=== PATIENT | male | born 1975 | race Asian ===

== ENCOUNTER 2022-03-26 12:31 | Outpatient (CLI) | payer BC, SELFPAY ==
--- NOTE | 2022-03-26 12:45 | XR_ITS ---
WS: [id number] Right shoulder, 2 views, 03/26/2022 Clinical Data: right shoulder pain Comparison: None. Findings: No fractures or dislocations are seen. The AC joint is normal. The adjacent right clavicle, right sca pula and ribs are normal. The soft tissues are unremarkable. XR/XR shoulder RT min 2V* [id number] Impression: Negative right shoulder.
== END 2022-03-26 12:32 | disposition home or self-care (01) ==
LOC: RAD 12:33
PROVIDERS: Visit Provider Emergency Medicine
DX: M25.511 Pain in right shoulder (principal)
CPT/HCPCS: 73030

== ENCOUNTER 2022-04-14 06:00 | Outpatient (RCR) | payer BC, SELFPAY | END 2022-04-23 23:59 | disposition home or self-care (01) | LOC: SPT 06:00 | PROVIDERS: Visit Provider Family Medicine | DX: M25.511 Pain in right shoulder (principal) | CPT/HCPCS: 97110; 97162 ==

== ENCOUNTER 2022-04-30 14:19 | Outpatient (RCR) | payer BC, SELFPAY | END 2022-05-23 23:59 | disposition home or self-care (01) | LOC: SPT 14:19 | PROVIDERS: Visit Provider Family Medicine | DX: M25.511 Pain in right shoulder (principal) | CPT/HCPCS: 97110 ==

== ENCOUNTER → 2022-11-10 08:54 | Outpatient (BNVA) | payer BC, SELFPAY | PROVIDERS: PCP Family Medicine; Visit Provider Family Medicine | DX: L50.9 Urticaria, unspecified (principal) | CPT/HCPCS: 82785; 86003 ==

== ENCOUNTER → 2022-11-17 07:33 | Outpatient (BNVA) | payer BC, SELFPAY | PROVIDERS: PCP Family Medicine; Visit Provider Family Medicine | DX: I48.91 Unspecified atrial fibrillation (principal); Z13.6 Encounter for screening for cardiovascular disorders | CPT/HCPCS: 80053; 83735; 84443; 85025 ==

== ENCOUNTER 2022-11-19 14:00 | Emergency (ER) | payer BC, SELFPAY ==
[2022-11-19] VITALS (33 sets, daily range): BP systolic 141–178; BP diastolic 93–105; PULSE 56–81; RESP 9–22; TEMP 37; O2SAT 95–99; BMI 28.8
--- NOTE | 2022-11-19 14:13 | ECG_ITS ---
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 Measurements Intervals [place] Rate: 54 P: 52 MI: 128 QRS: 72 QRSD: 109 T: 54 QT: 381 QTc: 363 Interpretive Statements SINUS BRADYCARDIA No previous ECG available for comparison Electronically Signed On 11-19-2022 23:54:03 CDT by Clifton Ewing M.D. [id number]
--- NOTE | 2022-11-19 14:15 | XR_ITS ---
WS: [id number] Exam: XR chest 1V portable [id number] Date/Time of Exam: 11/19/2022 2:24 PM Reason For Exam: cp No prior exams. The lungs are fully expanded and clear. Normal cardiomediastinal silhouette. Regional bony elements a re intact. A lobulated soft tissue density seen at the left cardiophrenic angle. No pleural effusions are noted. XR/XR chest 1V portable [id number] IMPRESSION: 1. No acute process identified. 2. Lobulated soft tissue density seen at the left cardiophrenic angle. This may represent epicardial fat however a pulmonary mass might have similar appearan ce. Contrast CT scan of the chest should be considered for further workup.
[2022-11-19 14:52] LABS: Basophils # 0.1 10^3/uL (0.0-0.1); Basophils % 0.7 %; Eosinophils # 0.2 10^3/uL (0.0-0.8); Hematocrit 46.4 % (42.0-52.0); Hemoglobin 15.5 g/dL (11.7-16.6); Lymphocytes # 2.3 10^3/uL (0.8-4.8); Lymphocytes % 33.6 %; Mean Corpuscular HGB Conc 33.4 g/dL (30.0-36.0); Mean Corpuscular Volume 86.9 fl (80-94); Mean Platelet Volume 10.7 fL (7.4-10.4); Monocytes # 0.6 10^3/uL (0.2-0.9); Monocytes % 7.9 %; Neutrophils # 3.78 10^3/uL (1.8-7.7); Neutrophils % 54.7 %; Nucleated Red Blood Cells % 0 %; Platelet Count 249 10^3/cmm (130-400); Red Blood Count 5.34 10^6/uL (4.1-5.3); Red Cell Distribution Width 12.9 % (12.1-15.1); White Blood Count 6.9 10^3/uL (4.0-10.0)
[2022-11-19 15:35] LABS: Anion Gap 16.2 (5-19); Blood Urea Nitrogen 16 mg/dL (6-20); Calcium 8.8 mg/dL (8.5-10.5); Carbon Dioxide 27 mmol/L (22-29); Chloride 101 mmol/L (98-107); Glomerular Filtration Rate 120.9 mL/min (90-130); Glucose 97 mg/dL (65-115); Osmolality Calculated 291 mOsm/kg (285-295); Potassium 4.2 mmol/L (3.5-5.1); Sodium 140 mmol/L (136-145)
[2022-11-19 15:38] LABS: Troponin(5th) Baseline 39 ng/L (0-15)
--- NOTE | 2022-11-19 16:09 | ED_ITS ---
HPI - Chest Pain General: Chief Complaint: Chest Pain Stated Complaint: chest discomfort Time Seen by Provider: 11/19/22 16:03 Source: patient Mode of arrival: ambulatory History of Present Illness: 47-year-old male presents emergency room he has had intermittent chest pain for nearly a week. He was seen recently found to be in A-fib started on metoprolol and Eliquis he still having palpitations at times and intermittent chest discomfort. He says last several days he has had it continuously. Nothing seems to exacerbate or relieve it he has mild discomfort on arrival here today. Does not notice any shortness of breath diaphoresis nausea or vomiting. MD complaint: chest discomfort Onset (ago): day(s) Timing of current episode: episodic Prior episodes: Yes Onset: during rest and during exertion Pain location: left chest Severity: mild Quality: heaviness Relieving factors: nothing Exacerbating factors: nothing Associated symptoms: Deny abdominal pain, diaphoresis, dyspnea, fever(s), leg edema, nausea, palpitations, sense of impending doom, syncope or vomiting Review of Systems Const: Denies: fever(s), chills, fatigue, malaise or diaphoresis ENMT: Denies: throat pain, ear or mastoid pain, nasal discharge or nasal congestion Card: Reports: chest pain and irregular heart rhythm; Denies: palpitations, edema, swelling of feet/ankles or syncope Resp: Denies: dyspnea, productive cough, non-productive cough or wheezing GI: Denies: abdominal pain, nausea or vomiting : Denies: flank pain, dysuria, urinary frequency or urinary urgency Skin/Breast: Denies: rash or pruritus [facility] ED PFSH: Medical History (Updated 11/20/22 @ 07:22 by Isaías Tobias DO) Atrial fibrillation with RVR Benign essential HTN Shoulder pain, right Surgical History No pertinent past surgical history Social History Smoking and tobacco status: never smoked Alcohol intake: current Alcohol intake frequency: holidays/special occasions only Lives independently: Yes Household members: spouse and children Physical Exam Const: GENERAL APPEARANCE: cooperative and comfortable ORIENTATION/CONSCIOUSNESS: Yes awake, Yes oriented to person, Yes oriented to place and Yes oriented to time HENMT: COMMON NORMALS: normocephalic, atraumatic and hearing grossly normal bilaterally HEAD & SCALP: normocephalic and atraumatic Resp: COMMON NORMALS: normal respiratory effort, No retractions, No use of accessory muscles and clear to auscultation bilaterally AUSCULTATION: clear to auscultation bilaterally Cardio: COMMON NORMALS: regular rate, regular rhythm and No murmurs present (Cardio) RATE: regular rate RHYTHM: regular rhythm GI: COMMON NORMALS: Soft to palpation and No hepatosplenomegaly present AUSCULTATION: Yes normoactive bowel sounds PALPATION: Yes Soft to palpation, No Tenderness to palpation present (GI), No Guarding due to palpation present (GI) and Yes No hepatosplenomegaly present Extremity: COMMON NORMALS: normal to inspection, capillary refill normal, no clubbing, cyanosis or edema, no calf tenderness and no pedal edema Neuro: SENSORIUM/ORIENTATION: Yes oriented to person, Yes oriented to place and Yes oriented to time Skin: COMMON NORMALS: no rashes or lesions noted GENERAL SKIN EXAM: no rashes or lesions noted Course Vital Signs: Vital signs: Vital Signs Temperature 98.6 F 11/19/22 14:08 Pulse Rate 65 11/19/22 19:03 Respiratory Rate 16 11/19/22 19:03 Blood Pressure 151/101 11/19/22 19:03 Pulse Oximetry 98 11/19/22 19:03 Oxygen Delivery Me thod 11/19/22 14:08 MDM - Chest Pain Medical Decision Making EKG and troponins unremarkable. Labs and imaging EKG reviewed with the patient. He is in normal sinus rhythm at this time. His Chads VASC 2 score calculates to be 1 (htn). I think he should undergo cardiac stress testing. Additionally I think he needs to be evaluated for continuing anticoagulation. Given he has A-fib he should undergo a nuclear stress test he will have to be off of his metoprolol for the stress testing it is likely that he would have recurrent A- fib which would confound the stress testing. Did ask him to start taking a baby aspirin daily for now. We will set him up for follow-up with cardiology. Medical Records I reviewed the patient's medical records. Lab Data I reviewed the patient's lab results. 11/19/22 14:35 11/19/22 14:35 Radiology Impressions Chest X-Ray 11/19/22 14:15 IMPRESSION: 1. No acute process identified. 2. Lobulated soft tissue density seen at the left cardiophrenic angle. This may represent epicardial fat however a pulmonary mass might have similar appearance. Contrast CT scan of the chest should be considered for further workup. Laboratory Results WBC 6.9 10^3/uL (4.0-10.0) 11/19/22 14:35 RBC 5.34 10^6/uL (4.1-5.3) H 11/19/22 14:35 Hgb 15.5 g/dL (11.7-16.6) 11/19/22 14:35 Hct 46.4 % (42.0-52.0) 11/19/22 14:35 MCV 86.9 fl (80-94) 11/19/22 14:35 MCH 29.0 pg (28.0-34.0) 11/19/22 14:35 MCHC 33.4 g/dL (30.0-36.0) 11/19/22 14:35 RDW 12.9 % (12.1-15.1) 11/19/22 14:35 Plt Count 249 10^3/cmm (130-400) 11/19/22 14:35 MPV 10.7 fL (7.4-10.4) H 11/19/22 14:35 Neut % (Auto) 54.7 % 11/19/22 14:35 Lymph % (Auto) 33.6 % 11/19/22 14:35 [place] % (Auto) 7.9 % 11/19/22 14:35 Eos % (Auto) 3.0 % 11/19/22 14:35 Baso % (Auto) 0.7 % 11/19/22 14:35 Neut # (Auto) 3.78 10^3/uL (1.8-7.7) 11/19/22 14:35 Lymph # (Auto) 2.3 10^3/uL (0.8-4.8) 11/19/22 14:35 [place] # (Auto) 0.6 10^3/uL (0.2-0.9) 11/19/22 14:35 Eos # (Auto) 0.2 10^3/uL (0.0-0.8) 11/19/22 14:35 Baso # (Auto) 0.1 10^3/uL (0.0-0.1) 11/19/22 14:35 Nucleated RBC % (auto) 0 % 11/19/22 14:35 Nucleated RBCs # 0.0 /100WBC 11/19/22 14:35 D-Dimer 0.35 ug/mIFEU (0-0.59) 11/19/22 14:35 Sodium 140 mmol/L (136-145) 11/19/22 14:35 Potassium 4.2 mmol/L (3.5-5.1) 11/19/22 14:35 Chloride 101 mmol/L (98-107) 11/19/22 14:35 Carbon Dioxide 27 mmol/L (22-29) 11/19/22 14:35 Anion Gap 16.2 (5-19) 11/19/22 14:35 BUN 16 mg/dL (6-20) 11/19/22 14:35 Creatinine 0.7 mg/dL (0.7-1.2) 11/19/22 14:35 GFR Calculation 120.9 mL/min (90-130) 11/19/22 14:35 Glucose 97 mg/dL (65-115) 11/19/22 14:35 Calculated Osmolality 291 mOsm/kg (285-295) 11/19/22 14:35 Calcium 8.8 mg/dL (8.5-10.5) 11/19/22 14:35 Troponin T Baseline 39 ng/L (0-15) H 11/19/22 14:35 Troponin T 120 Minute 39.08 ng/L (0-15) H 11/19/22 16:29 Delta Troponin T 0.08 ABS# (0-10) 11/19/22 16:29 TSH 1.10 uIU/mL (0.27-4.20) 11/19/22 14:35 Discharge Plan Discharge Patient Disposition: Home Clinical Impression: Atypical chest pain, Intermittent atrial fibrillation Condition: Stable Prescriptions: New aspirin 81 mg tablet,delayed release (DR/EC) 81 mg PO DAILY Qty: 30 0RF amlodipine 5 mg tablet 5 mg PO DAILY Qty: 30 0RF No Action metoprolol tartrate 25 mg tablet 25 mg PO BID Qty: 60 0RF Eliquis DVT-PE Treat 30D Start 5 mg (74 tabs) tablets,dose pack See Rx Instructions PO PER PKG DIR Qty: 74 0RF Rx Instructions: PO PER PKG DIR multivitamin Tablet 1 tab PO DAILY Discharge Orders: Discharge ED (Routine); Ordered 11/19/22 Ordered By: Isaías Tobias Referrals: Vale López DO [Primary Care Provider] - Discharge Diet: Usual diet Discharge Activity: Limit activity as instructed Patient Instructions: Opioid Safety, Pain Management Activity Restrictions/Additional Instructions: You are seen today for chest pain. Your blood pressure was elevated. Recommend continue Eliquis add aspirin 81 mg daily additionally add amlodipine 5 mg daily. desktop manager will make arranges for you to outpatient Lexiscan sestamibi stress test. Coding Level of Care Code ED Director Nursing Service for Ifeanyi Lima
[2022-11-19 16:11] LABS: D Dimer 0.35 ug/mIFEU (0-0.59)
--- NOTE | 2022-11-19 16:15 | ECG_ITS ---
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 Measurements Intervals [place] Rate: 66 P: 38 VT: 137 QRS: 48 QRSD: 96 T: 20 QT: 364 QTc: 381 Interpretive Statements SINUS RHYTHM Compared to ECG 11/19/2022 14:16:47 Sinus bradycardia no longer present Electronically Signed On 11-20-2022 18:48:36 CDT by Claudio Mobley M.D. [id number]
[2022-11-19 17:22] LABS: Troponin 5 2HR 39.08 ng/L (0-15)
[2022-11-19 17:23] LABS: Troponin 5 2HR Delta 0.08 ABS# (0-10)
--- NOTE | 2022-11-20 10:30 | DCPLANNER ---
Addendum entered by Sangeetha Romero 01/08/23 10:04: Patient had a follow up appointment scheduled with [facility] care - patient attended appointment Patient had an outpatient stress test - patient did attend appointment. Addendum entered by Sangeetha Romero 11/24/22 08:07: Patient has an outpatient stress test scheduled for Monday, December 19, 2022 at 7:30 Addendum entered by Sangeetha Romero 11/21/22 07:53: Patient has a follow up appointment scheduled for Saturday, January 07, 2023 at 2:[address] Mobley at [facility]. Original Note: manager recruiting had message to schedule a follow up appointment for patient with cardiology. manager recruiting sent patients information to the front office staff at [facility]. Patients information will be reviewed, clinic will call patient with appointment information. manager recruiting also had message to schedule an outpatient stress test for patient. manager recruiting faxed signed order to centralized scheduling, who will call patient with appointment information.
== END 2022-11-19 19:04 | disposition home or self-care (01) ==
PROVIDERS: Emergency Medicine; Emergency Provider Family Medicine; PCP Family Medicine
DX: R07.89 Other chest pain (principal); I48.91 Unspecified atrial fibrillation; I10 Essential (primary) hypertension
CPT/HCPCS: 36415; 71045; 80048; 84443; 84484; 85025; 85378; 93005; 99285

== ENCOUNTER 2022-11-25 08:13 | Observation (INO) | payer BC, SELFPAY ==
[2022-11-25] VITALS (94 sets, daily range): BP systolic 94–133; BP diastolic 60–99; PULSE 72–182; RESP 10–39; TEMP 36.4–36.9; O2SAT 91–100; BMI 29.2
--- NOTE | 2022-11-25 08:22 | ECG_ITS ---
[facility] Test Date: 2022-11-25 Pat Name: Dillan Elizabeth Department: Room: Gender: Male Finish Carpenter: : 1975 Requested By: Isaías Steele Order Number: [id number] La MD: Claudio Mobley M.D. Measurements Intervals [place] Rate: 156 P: 0 MT: 0 QRS: 117 QRSD: 91 T: -4 QT: 250 QTc: 403 Interpretive Statements ATRIAL FIBRILLATION WITH RAPID VENTRICULAR RESPONSE POSSIBLE RIGHT VENTRICULAR HYPERTROPHY [SOME/ALL OF: PROMINENT R IN V1, LATE TRANSITION, RAD, DEBBIE, SSS] ABNORMAL QRS-T ANGLE [QRS-T AXIS DIFFERENCE > 60] Compared to ECG 11/19/2022 18:03:57 Atrial abnormality now present Sinus rhythm no longer present Electronically Signed On 11-25-2022 11:53:17 CDT by Claudio Mobley M.D. [id number]
--- NOTE | 2022-11-25 08:36 | XRR_ITS ---
PROCEDURE INFORMATION: Exam: XR Chest Exam date and time: 11/25/2022 8:56 AM Age: 47 years old Clinical indication: Cough and dyspnea; Patient HX: Irregular hr, dizziness; Additional info: Dyspnea/cough TECHNIQUE: Imaging protocol: Radiologic exam of the chest. Views: 1 view. COMPARISON: CR XR chest 1V portable [id number] 11/19/2022 2:27 PM FINDINGS: Lungs: Unremarkable. No consolidation. Pleural spaces: Unremarkable. No pleural effusion. No pneumothorax. Heart/Mediastinum: Unremarkable. No cardiomegaly. Bones/joints: Unremarkable for age. XR/XR chest 1V portable [id number] IMPRESSION: Negative chest
--- NOTE | 2022-11-25 08:38 | W.ED.ARRPALP ---
HPI - Arrhythmia/Palpitations General: Chief Complaint: Arrhythmia/Palpitations Stated Complaint: irregular hr, dizziness Time Seen by Provider: 11/25/22 08:20 Source: patient Mode of arrival: ambulatory History of Present Illness: 7-year-old male presents emergency room is a known history of A-fib with RVR. He is currently on metoprolol and is on Eliquis. He had wheezing and recently his blood pressure is elevated we added amlodipine because he was bradycardic at times but his rate was well controlled and he was in a sinus rhythm. This morning he had not taken any of his medications prior to arrival he just did not feel well he did been feeling some palpitations and irregular heartbeat. He did not have any chest pain or shortness of breath. MD complaint: rapid heart beat, heart racing and palpitations Duration: constant Severity: mild Context: occurred during rest Arrhythmia history: atrial fibrillation Associated symptoms: Deny anxiety, cough, diaphoresis, muscle cramps, nausea, paresthesias, pre-syncope, sense of impending doom, short of breath, syncope or vomiting Review of Systems Const: Denies: fever(s), chills, fatigue, malaise or diaphoresis ENMT: Denies: throat pain, ear or mastoid pain, nasal discharge or nasal congestion Card: Reports: palpitations, irregular heart rhythm, lightheadedness and dyspnea on exertion; Denies: chest pain, edema, swelling of feet/ankles, syncope or pre-syncope Resp: Denies: dyspnea, productive cough or non-productive cough GI: Denies: abdominal pain, nausea or vomiting : Denies: flank pain, dysuria, urinary frequency or urinary urgency Musc: Denies: muscle cramps Skin/Breast: Denies: rash or pruritus Psych: Denies: anxiety PFSH ED PFSH: Medical History Atrial fibrillation with RVR Benign essential HTN Idiopathic urticaria Shoulder pain, right Surgical History No pertinent past surgical history Family History Other Diabetes Hypertension Social History Smoking and tobacco status: never smoked Alcohol intake: current Alcohol intake frequency: holidays/special occasions only Lives independently: Yes Household members: spouse and children Physical Exam Const: COMMON NORMALS: no acute distress GENERAL APPEARANCE: cooperative and comfortable ORIENTATION/CONSCIOUSNESS: Yes awake, Yes oriented to person, Yes oriented to place and Yes oriented to time HENMT: COMMON NORMALS: normocephalic, atraumatic and hearing grossly normal bilaterally HEAD & SCALP: normocephalic and atraumatic Resp: COMMON NORMALS: normal respiratory effort, No retractions, No use of accessory muscles and clear to auscultation bilaterally AUSCULTATION: clear to auscultation bilaterally Cardio: COMMON NORMALS: No murmurs present (Cardio) RATE: tachycardic RHYTHM: abnormal rhythm irregularly irregular GI: COMMON NORMALS: Soft to palpation and No hepatosplenomegaly present AUSCULTATION: Yes normoactive bowel sounds PALPATION: Yes Soft to palpation, No Tenderness to palpation present (GI), No Guarding due to palpation present (GI) and Yes No hepatosplenomegaly present Extremity: COMMON NORMALS: normal to inspection, capillary refill normal, no clubbing, cyanosis or edema, no calf tenderness and no pedal edema Neuro: SENSORIUM/ORIENTATION: Yes oriented to person, Yes oriented to place and Yes oriented to time Skin: COMMON NORMALS: no rashes or lesions noted GENERAL SKIN EXAM: no rashes or lesions noted Course Vital Signs: Vital signs: Vital Signs Temperature 98.3 F 11/26/22 04:00 Pulse Rate 92 11/26/22 07:41 Respiratory Rate 23 H 11/26/22 07:41 Blood Pressure 124/67 11/26/22 07:41 Pulse Oximetry 96 11/26/22 07:41 Oxygen Delivery Me thod 11/26/22 07:41 MDM - Arrhythmia/Palpitations Medical Decision Making Patient had not taken his metoprolol this morning and was started on Cardizem rate improved but did have to titrate his Cardizem up. Discussed with hospitalist orders written. Need to be reevaluated to see if they need to continue his Eliquis or not. He also needs further work-up for his A-fib. Medical Records I reviewed the patient's medical records. Lab Data I reviewed the patient's lab results. 11/26/22 02:59 11/26/22 02:59 Radiology Impressions Chest X-Ray 11/25/22 08:36 IMPRESSION: Negative chest Laboratory Results WBC 7.5 10^3/uL (4.0-10.0) 11/25/22 08:44 RBC 5.68 10^6/uL (4.1-5.3) H 11/25/22 08:44 Hgb 16.8 g/dL (11.7-16.6) H 11/25/22 08:44 Hct 49.0 % (42.0-52.0) 11/25/22 08:44 MCV 86.3 fl (80-94) 11/25/22 08:44 MCH 29.6 pg (28.0-34.0) 11/25/22 08:44 MCHC 34.3 g/dL (30.0-36.0) 11/25/22 08:44 RDW 13.1 % (12.1-15.1) 11/25/22 08:44 Plt Count 255 10^3/cmm (130-400) 11/25/22 08:44 MPV 10.3 fL (7.4-10.4) 11/25/22 08:44 Neut % (Auto) 52.5 % 11/25/22 08:44 Lymph % (Auto) 36.7 % 11/25/22 08:44 [place] % (Auto) 8.0 % 11/25/22 08:44 Eos % (Auto) 2.0 % 11/25/22 08:44 Baso % (Auto) 0.7 % 11/25/22 08:44 Neut # (Auto) 3.95 10^3/uL (1.8-7.7) 11/25/22 08:44 Lymph # (Auto) 2.8 10^3/uL (0.8-4.8) 11/25/22 08:44 [place] # (Auto) 0.6 10^3/uL (0.2-0.9) 11/25/22 08:44 Eos # (Auto) 0.2 10^3/uL (0.0-0.8) 11/25/22 08:44 Baso # (Auto) 0.1 10^3/uL (0.0-0.1) 11/25/22 08:44 Nucleated RBC % (auto) 0 % 11/25/22 08:44 Nucleated RBCs # 0.0 /100WBC 11/25/22 08:44 Sodium 141 mmol/L (136-145) 11/25/22 08:44 Potassium 4.2 mmol/L (3.5-5.1) 11/25/22 08:44 Chloride 106 mmol/L (98-107) 11/25/22 08:44 Carbon Dioxide 24 mmol/L (22-29) 11/25/22 08:44 Anion Gap 15.2 (5-19) 11/25/22 08:44 BUN 15 mg/dL (6-20) 11/25/22 08:44 Creatinine 0.7 mg/dL (0.7-1.2) 11/25/22 08:44 GFR Calculation 120.9 mL/min (90-130) 11/25/22 08:44 Glucose 91 mg/dL (65-115) 11/25/22 08:44 Calculated Osmolality 292 mOsm/kg (285-295) 11/25/22 08:44 Calcium 8.6 mg/dL (8.5-10.5) 11/25/22 08:44 Magnesium 2.3 mg/dL (1.7-2.3) 11/25/22 08:44 Troponin T Baseline 47 ng/L (0-15) H 11/25/22 08:44 Troponin T 120 Minute 45.81 ng/L (0-15) H 11/25/22 11:00 Delta Troponin T -1.19 ABS# (0-10) L 11/25/22 11:00 Critical Care Time Critical Care Time: Critical Care Time: Yes Total Critical Care Time: 40 Attestation: The high probability of a clinically significant, sudden or life threatening deterioration of the patient's cardiovascular system(s) required my full and direct attention, intervention and personal management. The critical care time is as shown. This time is in addition to time spent performing any reported procedures but includes the following: [x] Data and vital sign review and interpretation [x] Patient assessment, examination and intervention [x] Documentation [x] Medication orders and management Discharge Plan Discharge Patient Disposition: Admitted As Inpatient Admit Provider: Jake Cornell Clinical Impression: Atrial fibrillation with RVR, Intermittent atrial fibrillation Condition: Stable Coding Level of Care Code ED Credit Control Manager for Richardg Clarence
[2022-11-25] MEDS: dilTIAZem 5 mg/mL SDV 5 mL 20 MG IVP (08:50)
[2022-11-25 08:51] LABS: Basophils # 0.1 10^3/uL (0.0-0.1); Basophils % 0.7 %; Eosinophils # 0.2 10^3/uL (0.0-0.8); Hemoglobin 16.8 g/dL (11.7-16.6); Lymphocytes # 2.8 10^3/uL (0.8-4.8); Lymphocytes % 36.7 %; Mean Corpuscular HGB Conc 34.3 g/dL (30.0-36.0); Mean Corpuscular Hemoglobin 29.6 pg (28.0-34.0); Mean Corpuscular Volume 86.3 fl (80-94); Mean Platelet Volume 10.3 fL (7.4-10.4); Monocytes # 0.6 10^3/uL (0.2-0.9); Neutrophils # 3.95 10^3/uL (1.8-7.7); Neutrophils % 52.5 %; Nucleated Red Blood Cells % 0 %; Platelet Count 255 10^3/cmm (130-400); Red Blood Count 5.68 10^6/uL (4.1-5.3); Red Cell Distribution Width 13.1 % (12.1-15.1); White Blood Count 7.5 10^3/uL (4.0-10.0)
--- NOTE | 2022-11-25 08:52 | PC.PHAR ---
pt states he takes care of his own medications-pt states he started taking eliquis pack the evening he got filled on 11/17/22-pt states on 11/24/22 he took 10mg in the am and 5mg qpm-pt states he will start the 5mg bid today
[2022-11-25] MEDS: dilTIAZem 100 MG in sodium chloride 0.9% (add-van) 100 ML IV (08:54)
[2022-11-25 09:09] LABS: Anion Gap 15.2 (5-19); Blood Urea Nitrogen 15 mg/dL (6-20); Calcium 8.6 mg/dL (8.5-10.5); Carbon Dioxide 24 mmol/L (22-29); Chloride 106 mmol/L (98-107); Glomerular Filtration Rate 120.9 mL/min (90-130); Glucose 91 mg/dL (65-115); Osmolality Calculated 292 mOsm/kg (285-295); Potassium 4.2 mmol/L (3.5-5.1); Sodium 141 mmol/L (136-145)
[2022-11-25 09:11] LABS: Troponin(5th) Baseline 47 ng/L (0-15)
[2022-11-25] MEDS: metoprolol tartrate 25 mg Tablet PO ×2 (10:28→18:43)
--- NOTE | 2022-11-25 10:46 | ECG_ITS ---
[facility] Test Date: 2022-11-25 Pat Name: Dillan Elizabeth Department: Room: Gender: Male Mft: : 1975 Requested By: Isaías Steele Order Number: [id number] La MD: Claudio Mobley M.D. Measurements Intervals [place] Rate: 135 P: 0 WI: 0 QRS: 118 QRSD: 90 T: 18 QT: 264 QTc: 397 Interpretive Statements ATRIAL FIBRILLATION WITH RAPID VENTRICULAR RESPONSE WITH ABERRANT CONDUCTION OR VENTRICULAR PREMATURE COMPLEXES POSSIBLE RIGHT VENTRICULAR HYPERTROPHY [SOME/ALL OF: PROMINENT R IN V1, LATE TRANSITION, RAD, DEBBIE, SSS] NONSPECIFIC T-WAVE ABNORMALITY Compared to ECG 11/25/2022 08:31:37 Ventricular premature complex(es) now present Aberrant conduction of supraventricular beat(s) now present T-wave abnormality now present Electronically Signed On 11-25-2022 11:54:07 CDT by Claudio Mobley M.D. [id number]
--- NOTE | 2022-11-25 10:50 | PM.HP ---
Providers/Chief Complaint Admitting Physician: Jake Cornell MD Primary Care Provider: Vale López DO Chief Complaint: irregular hr, dizziness History of Present Illness Dillna Elizabeth is a 47 year old male who presents to the emergency department feeling dizzy, having palpitations. Heart rate was noted to be high, and atrial fibrillation/flutter. He does not report any chest discomfort currently. Some shortness of breath with exertion. He reports he was first diagnosed with atrial fibrillation on November 14, and beta-florence, and anticoagulation were initiated. He was also placed on Norvasc secondary to hypertension. His only other medical condition is that he has had some intermittent unexplained hives. He was started on Stephanie about a month ago which is helping substantially. He does not believe this is Stephanie-D, just plain fexofenadine and he gets this [id number]. No prior history of cardiac issues. Review of Systems General: Reports: 10 or more systems reviewed and unremarkable except in HPI and below Const: Denies: fever(s) or chills Card: Reports: palpitations and dyspnea on exertion; Denies: chest pain Resp: Denies: productive cough or non-productive cough GI: Denies: abdominal pain, hematochezia or melena Medications/Allergies Home Medications Medication Instructions Recorded Confirmed Last Taken Type metoprolol tartrate 25 mg tablet 25 mg PO BID #60 tabs 11/17/22 11/25/22 11/24/22 Rx multivitamin 1 tab PO QAM 11/19/22 11/25/22 11/24/22 History amlodipine 5 mg tablet 5 mg PO QAM 11/25/22 11/25/22 11/24/22 History apixaban 5 mg tablet (Eliquis) 5 mg PO BID 11/25/22 11/25/22 11/24/22 History see pharmacy comment aspirin 81 mg tablet,delayed 81 mg PO BEDTIME 11/25/22 11/25/22 11/24/22 History release fexofenadine 180 mg tablet 180 mg PO QAM 11/25/22 11/25/22 11/24/22 History Allergies Allergy/AdvReac Type Severity Reaction Status Date / Time No Known Allergies Allergy Verified 11/25/22 08:54 PFSH Acute PFSH: Medical History Atrial fibrillation with RVR Benign essential HTN Idiopathic urticaria Shoulder pain, right Surgical History No pertinent past surgical history Family History Other Diabetes Hypertension Social History Smoking and tobacco status: never smoked Alcohol intake: current Alcohol intake frequency: holidays/special occasions only Lives independently: Yes Household members: spouse and children Vitals/I&O/Wt Last Vital Signs Temp 98.2 F 11/25/22 08:22 Pulse 106 H 11/25/22 09:10 Resp 16 11/25/22 08:22 BP 106/79 11/25/22 09:10 Pulse Ox 96 11/25/22 09:10 O2 Del Method 11/25/22 09:10 11/24/22 11/25/22 11/25/22 22:59 06:59 14:59 Intake Total 5.75 / 5.75 Balance 5.75 / 5.75 Weight last 48 hrs Weight 87.09 kg Physical Exam Narrative: General exam is a white male, no distress, conversant and pleasant HEENT: Atraumatic and normocephalic. Pupils equally round. Oropharynx clear. Neck is supple no lymphadenopathy thyromegaly Cardiovascular irregular, irregular with accelerated rate. No murmur. Lungs clear no wheezing or crackles Abdomen is soft with positive bowel sounds. No obvious organomegaly exams deferred Extremities no cyanosis clubbing edema, cap refill brisk Skin no rash Neuro no obvious focal deficits. Data 11/25/22 08:44 11/25/22 08:44 Other Labs: Previous recent LFTs were reviewed, from November 17 which were normal with the exception of slight elevation of ALT at 49 Troponin 47, repeat pending TSH checked on 2 separate occasions recently and negative. EKG demonstrates initially a rate of 160, right axis deviation, atrial fibrillation/flutter. Nonspecific ST-T wave changes. Chest x-ray done today which I reviewed is normal. A&P Assessment and plan (1) Atrial fibrillation with RVR: Patient presents to the emergency department atrial fibrillation with rapid ventricular rate. He was first diagnosed with atrial fibrillation on November 14. Since then he has been put on Norvasc for hypertension, Eliquis for anticoagulation, and metoprolol. I believe he was on a higher dose of metoprolol at 1 point but found to be bradycardic when he converted to sinus rhythm in the mid 50s in clinic and the dose was lowered. Check echocardiogram [id number] score is 1. Continue Eliquis for now until echocardiogram is back. Then discussed with patient risks and benefits Could benefit from outpatient cardiology follow-up. If difficulty controlling rhythm inpatient, could consider involving them currently. Observation, to telemetry TSH was already checked and normal Check magnesium level No need for aspirin currently. Atherosclerotic disease thought not likely. Continue to evaluate troponin trend. Plan History of hypertension. Was placed on Norvasc. Will hold as blood pressure is somewhat low currently and likely further adjustments of medication for rate will be needed. History of idiopathic urticaria. Continue Stephanie Attestations Medical Necessity Statement*: Will need less than 2 midnight stay for evaluation and treatment of atrial fibrillation with rapid ventricular rate. Diagnoses Atrial fibrillation with RVR I48.91 Time Spent (min) 47
--- NOTE | 2022-11-25 10:52 | USCV_ITS ---
Glenn Dillan Age: 47 Gender: M : 1975 Exam Date: 11/25/2022 13:51 Ordering Phys: Jake Cornell MD Technologist: Peterson Wilder [place] [facility] [place]: aflutter BP: / HR: Rhythm: Sinus Technical Quality: MEASUREMENTS (Male / Female) Normal Values FINDINGS Left Ventricle Normal left ventricular size and systolic function, EF 55%.mild left ventricular hypertrophy. Right Ventricle Possibly of normal size and ejection fraction Right Atrium Possibly of normal size Left Atrium Mildly increased left atrial size. Mitral Valve No gross abnormalities noted no gross abnormalities noted Aortic Valve No gross abnormalities noted Tricuspid Valve No gross abnormalities noted Pulmonic Valve Pulmonic valve not well visualized. Pericardium No pericardial effusion. Aorta Normal aortic annulus size. IVC Inferior vena cava not visualized. CONCLUSIONS Normal left ventricular size and systolic function, EF 55%. Segmental wall motion is difficult because of the arrhythmia. However no gross wall motion normalities were noted Mild left ventricular hypertrophy. Mildly increased left atrial size. There is no pericardial effusion. There are no intracardiac masses. No significant stenotic or regurgitant lesions. No similar previous studies are available for comparison Dr Clifton Ewing MD [facility] (Electronically Signed) Final Date: 25 November 2022 22:54 S
[2022-11-25 11:33] LABS: Troponin 5 2HR 45.81 ng/L (0-15)
[2022-11-25 11:37] LABS: Troponin 5 2HR Delta -1.19 ABS# (0-10)
[2022-11-25 12:07] LABS: Magnesium 2.3 mg/dL (1.7-2.3)
[2022-11-25] MEDS: dilTIAZem 30 mg Tablet PO ×2 (14:07→18:43)
--- NOTE | 2022-11-25 14:53 | ECG_ITS ---
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 Measurements Intervals [place] Rate: 94 P: 0 DE: 0 QRS: 66 QRSD: 97 T: 35 QT: 326 QTc: 409 Interpretive Statements ATRIAL FIBRILLATION WITH ABERRANT CONDUCTION OR VENTRICULAR PREMATURE COMPLEXES Compared to ECG 11/25/2022 10:46:20 Atrial abnormality no longer present T-wave abnormality no longer present Electronically Signed On 11-25-2022 17:29:37 CDT by Claudio Mobley M.D. [id number]
[2022-11-25 15:24] LABS: Troponin 5 6HR 44.81 ng/L (0-15)
[2022-11-25 15:34] LABS: Troponin 5 6HR Delta -2.19 ng/L (0-12)
[2022-11-25] MEDS: sodium chloride 0.9% 1,000 ML 75 ML IV (16:14)
[2022-11-25] MEDS: apixaban 5 mg Tablet PO (18:43)
[2022-11-26] VITALS (62 sets, daily range): BP systolic 99–155; BP diastolic 60–110; PULSE 67–173; RESP 14–26; TEMP 36.4–36.8; O2SAT 89–98
[2022-11-26] MEDS: dilTIAZem 30 mg Tablet PO ×2 (00:58→07:52)
[2022-11-26] MEDS: sodium chloride 0.9% 1,000 ML 75 ML IV (03:53)
[2022-11-26] MEDS: dilTIAZem 100 MG in sodium chloride 0.9% (add-van) 100 ML 7.5 MG IV (03:55)
[2022-11-26 04:20] LABS: Basophils # 0.1 10^3/uL (0.0-0.1); Basophils % 0.7 %; Eosinophils # 0.2 10^3/uL (0.0-0.8); Eosinophils % 2.8 %; Hematocrit 44.9 % (42.0-52.0); Hemoglobin 15.1 g/dL (11.7-16.6); Lymphocytes # 3.2 10^3/uL (0.8-4.8); Lymphocytes % 41.9 %; Mean Corpuscular HGB Conc 33.6 g/dL (30.0-36.0); Mean Corpuscular Volume 86.3 fl (80-94); Mean Platelet Volume 11.1 fL (7.4-10.4); Monocytes # 0.6 10^3/uL (0.2-0.9); Monocytes % 7.3 %; Neutrophils # 3.57 10^3/uL (1.8-7.7); Neutrophils % 47.2 %; Nucleated Red Blood Cells % 0 %; Platelet Count 242 10^3/cmm (130-400); Red Cell Distribution Width 13.2 % (12.1-15.1); White Blood Count 7.6 10^3/uL (4.0-10.0)
[2022-11-26 04:44] LABS: Anion Gap 12.1 (5-19); Blood Urea Nitrogen 15 mg/dL (6-20); Calcium 8.4 mg/dL (8.5-10.5); Carbon Dioxide 24 mmol/L (22-29); Chloride 107 mmol/L (98-107); Glomerular Filtration Rate 103.6 mL/min (90-130); Glucose 99 mg/dL (65-115); Magnesium 2.1 mg/dL (1.7-2.3); Osmolality Calculated 289 mOsm/kg (285-295); Potassium 4.1 mmol/L (3.5-5.1); Sodium 139 mmol/L (136-145)
[2022-11-26] MEDS: fexofenadine 60 mg Tablet 180 MG PO (06:08)
[2022-11-26] MEDS: apixaban 5 mg Tablet PO ×2 (09:30→18:58)
[2022-11-26] MEDS: metoprolol tartrate 25 mg Tablet PO ×2 (09:30→18:58)
[2022-11-26] MEDS: digoxin 250 mcg/ml INJ 2 mL 500 MCG IVP (09:31)
[2022-11-26] MEDS: dilTIAZem 60 mg Tablet PO ×2 (13:00→19:01)
--- NOTE | 2022-11-26 13:13 | PM.PN ---
Subjective Subjective: I have seen patient several times today. This morning, he was still significantly fast on his heart rate with atrial fibrillation with rapid ventricular rate. He had not converted. He was still on a Cardizem drip at around 7-/2. I increased his p.o. Cardizem, and rechecked him this afternoon. Heart rate is better controlled around 100, but becomes significantly faster with any movement. He reports he is feeling better. Blood pressure has been stable. Medications: Reviewed: Yes Vitals/I&O/Wt Last Vital Signs Temp 98.3 F 11/26/22 04:00 Pulse 92 11/26/22 07:41 Resp 23 H 11/26/22 07:41 BP 124/67 11/26/22 07:41 Pulse Ox 96 11/26/22 07:41 O2 Del Method 11/26/22 07:41 11/25/22 11/26/22 11/26/22 22:59 06:59 14:59 Intake Total 226.917 / 343.389 7577.083 / 1412.083 409.875 / 409.875 Balance 226.917 / 554.150 1681.083 / 1412.083 409.875 / 409.875 Weight last 48 hrs Weight 86.183 kg Weight 87.18 kg Weight 87.09 kg Physical Exam Narrative: General exam is a white male, no distress, conversant and pleasant Neck is supple no lymphadenopathy thyromegaly Cardiovascular irregular, irregular with accelerated rate. No murmur. Lungs clear no wheezing or crackles Abdomen is soft with positive bowel sounds. No obvious organomegaly Extremities no cyanosis clubbing edema, cap refill brisk Skin no rash Data 11/26/22 02:59 11/26/22 02:59 Other Labs: TSH was reviewed and normal. Magnesium normal. Echocardiogram reviewed, normal EF, 55%, mild LVH, no gross wall motion abnormalities. A&P Assessment and plan (1) Atrial fibrillation with RVR: Patient presents to the emergency department atrial fibrillation with rapid ventricular rate. He was first diagnosed with atrial fibrillation on November 14. Since then he has been put on Norvasc for hypertension, Eliquis for anticoagulation, and metoprolol. I believe he was on a higher dose of metoprolol at 1 point but found to be bradycardic when he converted to sinus rhythm in the mid 50s in clinic and the dose was lowered. Echocardiogram has been checked and largely normal [id number] score is 1. Continue Eliquis for now until echocardiogram is back. Then discussed with patient risks and benefits I was hoping he would convert. Unfortunately he is still in atrial fibrillation, and run significantly fast with any exertion. I discontinued his Cardizem drip earlier today after increasing his p.o. Cardizem. We will go ahead and consult cardiology. Secondary to his young age, no significant other comorbidities he may benefit from conversion to normal sinus rhythm. In my conversation with cardiology flecainide is a consideration. Initially placed observation TSH was already checked and normal Magnesium level was checked and normal No need for aspirin currently. Atherosclerotic disease thought not likely. Continue to evaluate troponin trend. Plan History of hypertension. Was placed on Norvasc. This was discontinued as other medicines were being adjusted. History of idiopathic urticaria. Continue Stephanie Attestations Medical Necessity Statement*: Needs continued hospitalization, for evaluation by cardiology and potential orthodox of normal sinus rhythm as he has yet failed to convert. Diagnoses Atrial fibrillation with RVR I48.91 Time Spent (min) 39
--- NOTE | 2022-11-26 14:30 | PC.NURSE ---
Pt's heart rate is running 160-170's. Notified Dr. Morris. New orders given and implemented.
--- NOTE | 2022-11-26 14:41 | NUR.SHIFT ---
Patient's heart rate trending up to 140's. Called Dr. Morris. New orders noted and implemented. Will continue to monitor.
[2022-11-26] MEDS: metoprolol tartrate 1 mg/1 mL SDV 5 mL 5 MG IVP (14:50)
--- NOTE | 2022-11-26 17:30 | PM.CONSULT ---
Providers/Reason For Consult Consulting Physician/Specialty*: Claudio Mobley MD/ Cardiology Reason for Consult*: Atrial fibrillation with RVR Requesting Physician: Dr Cornell Attending Physician: Jake Cornell MD Primary Care Provider: Vale López DO History of Present Illness History of Present Illness Dillan Elizabeth is a 47 year old male with past medical history of hypertension and was recently diagnosed with atrial fibrillation. He has presented to hospital with A-fib with RVR. His symptoms are palpitation and fatigue. Also feels chest pressure with the palpitations. Heart rate is uncontrolled. He is on Eliquis, metoprolol and cardizem. Review of Systems General: Reports: 10 or more systems reviewed and unremarkable except in HPI and below Const: Denies: fever(s) or chills Card: Reports: palpitations and dyspnea on exertion; Denies: chest pain Resp: Denies: productive cough or non-productive cough GI: Denies: abdominal pain, hematochezia or melena Medications/Allergies Home Medications Medication Instructions Recorded Confirmed Last Taken Type metoprolol tartrate 25 mg tablet 25 mg PO BID #60 tabs 11/17/22 11/25/22 11/24/22 Rx multivitamin 1 tab PO QAM 11/19/22 11/25/22 11/24/22 History amlodipine 5 mg tablet 5 mg PO QAM 11/25/22 11/25/22 11/24/22 History apixaban 5 mg tablet (Eliquis) 5 mg PO BID 11/25/22 11/25/22 11/24/22 History see pharmacy comment aspirin 81 mg tablet,delayed 81 mg PO BEDTIME 11/25/22 11/25/22 11/24/22 History release fexofenadine 180 mg tablet 180 mg PO QAM 11/25/22 11/25/22 11/24/22 History Allergies Allergy/AdvReac Type Severity Reaction Status Date / Time shrimp Allergy ALGY-Hives Verified 11/25/22 19:22 Current Medications Generic Name Dose Route Start Last Admin Trade Name Freq PRN Reason Stop Dose Admin Apixaban 5 mg 11/25/22 18:00 11/26/22 09:30 Apixaban 5 Mg Tablet PO 5 mg BID MODESTO Administration Diltiazem HCl 60 mg 11/26/22 14:00 11/26/22 13:00 Diltiazem 60 Mg Tablet PO 60 mg Q6H MODESTO Administration Fexofenadine HCl 180 mg 11/26/22 06:00 11/26/22 06:08 Fexofenadine 60 Mg Tablet PO 180 mg QAM MODESTO Administration Diltiazem HCl 100 mg/ Sodium 100 mls @ 0 mls/hr 11/25/22 08:45 11/26/22 10:35 Chloride IV 0 mg/hr .Q0M MODESTO 0 mls/hr Titration Protocol Per Protocol Sodium Chloride 1,000 mls @ 75 mls/hr 11/25/22 14:35 11/26/22 03:53 Sodium Chloride 0.9% IV 75 mls/hr .[id number] MODESTO Administration Metoprolol Tartrate 25 mg 11/25/22 18:00 11/26/22 09:30 Metoprolol Tartrate 25 Mg Tablet PO 25 mg BID MODESTO Administration PFSH Acute PFSH: Medical History Atrial fibrillation with RVR Benign essential HTN Idiopathic urticaria Shoulder pain, right Surgical History No pertinent past surgical history Family History Other Diabetes Hypertension Social History Smoking and tobacco status: never smoked Alcohol intake: current Alcohol intake frequency: holidays/special occasions only Lives independently: Yes Household members: spouse and children Vitals/I&O/Wt Last Vital Signs Temp 98.3 F 11/26/22 04:00 Pulse 128 H 11/26/22 14:00 Resp 20 H 11/26/22 14:00 BP 125/76 11/26/22 14:00 Pulse Ox 94 11/26/22 14:00 O2 Del Method 11/26/22 07:41 11/26/22 11/26/22 11/26/22 06:59 14:59 22:59 Intake Total 1142.083 / 1412.083 409.875 / 409.875 Balance 1142.083 / 1412.083 409.875 / 409.875 Weight last 48 hrs Weight 190 lb Weight 192 lb 3.2 oz Weight 192 lb Physical Exam Narrative: GENERAL: Patient is alert, awake and oriented x3. [] NECK: No jugular vein distension. [] HEENT: No cyanosis. No icterus. No pallor. [] HEART: Regular S1 and S2. No murmur, rub or gallop. [] LUNGS: Clear to auscultate bilaterally. [] CENTRAL NERVOUS SYSTEM: Grossly nonfocal. [] EXTREMITIES: Lower extremities with 1+ edema bilaterally. Pulses palpable in the lower extremities, both dorsalis pedis and posterior tibial. [] Data 11/26/22 02:59 11/26/22 02:59 A&P Assessment and plan (1) Atrial fibrillation with RVR: (2) Benign essential HTN: (3) Elevated blood pressure reading without diagnosis of hypertension: Plan The patient has recently diagnosed atrial fibrillation and presented to hospital with RVR. Heart rates are still uncontrolled. We will start amiodarone 400 mg twice daily. We will plan on DENIS cardioversion tomorrow. Continue Eliquis. N.p.o. past midnight He will need ischemic work-up with a stress test prior to switching amiodarone to a different antiarrhythmic likely flecainide Continue metoprolol and cardizem Thank you for involving us with care of this patient. We will continue to follow. Please call with questions. Consult Attestations Medical Necessity Statement: Care expected to cross 2 midnights. Coding Level of Care Code Acute Code for [facility] Fwd Diagnoses Atrial fibrillation with RVR I48.91 Benign essential HTN I10 Elevated blood pressure reading without diagnosis of hypertension R03.0
[2022-11-26] MEDS: amiodarone 200 mg Tablet 400 MG PO (18:56)
[2022-11-26] MEDS: dilTIAZem 100 MG in sodium chloride 0.9% (add-van) 100 ML IV (19:43)
--- NOTE | 2022-11-26 22:55 | PC.NURSE ---
11/26/221909 - Discussed pt hr goal, medications, and clinical presentation with Dr. Connell. Told to resume cardizem gtt for hr goal less than or equal to 110.
[2022-11-27] VITALS (71 sets, daily range): BP systolic 84–151; BP diastolic 50–108; PULSE 74–183; RESP 12–31; TEMP 36.6–37; O2SAT 70–100
[2022-11-27] MEDS: dilTIAZem 60 mg Tablet PO ×2 (00:59→14:47)
--- NOTE | 2022-11-27 01:15 | PC.NURSE ---
11/27/22 0045 - Contacted MD on pt continued elevated HR despite cardizem gtt. Told to give 0200 po cardizem early. Will continue to monitor.
[2022-11-27] MEDS: dilTIAZem 100 MG in sodium chloride 0.9% (add-van) 100 ML 15 MG IV (03:04)
[2022-11-27] MEDS: fexofenadine 60 mg Tablet 180 MG PO (05:33)
--- NOTE | 2022-11-27 07:24 | ANES.PREANE2 ---
Pre-Anesthetic Assessment Height/Weight: Height 1.73 m Weight 86.183 kg Temp Pulse Resp BP Pulse Ox O2 Del Method 98.4 F 99 16 116/83 86 L 11/27/22 04:00 11/27/22 05:58 11/27/22 03:45 11/27/22 03:45 11/27/22 03:45 11/26/22 20:00 DENIS/Cardioversion Familial anesthetic complications: None Was Beta Hamzah taken within 24 hours: Yes Was Clonidine taken within 24 hours: N/A Last intake: > 8 hrs Social No alcohol and No tobacco Former smoker Exam alert, oriented x 3, clear to auscultation bilaterally and regular rate & rhythm Airway Dentition: full Pulmonary Lung nodule CV/HEM Atrial Fibrillation and Hypertension Anesthetic Plan ASA status: 3 Anesthesia: MAC Risk of > 500 ml blood loss (7ml/kg in children): No Medications/Allergies Home Medications Medication Instructions Recorded Confirmed Last Taken Type metoprolol tartrate 25 mg tablet 25 mg PO BID #60 tabs 11/17/22 11/25/22 11/24/22 Rx multivitamin 1 tab PO QAM 11/19/22 11/25/22 11/24/22 History amlodipine 5 mg tablet 5 mg PO QAM 11/25/22 11/25/22 11/24/22 History apixaban 5 mg tablet (Eliquis) 5 mg PO BID 11/25/22 11/25/22 11/24/22 History see pharmacy comment aspirin 81 mg tablet,delayed 81 mg PO BEDTIME 11/25/22 11/25/22 11/24/22 History release fexofenadine 180 mg tablet 180 mg PO QAM 11/25/22 11/25/22 11/24/22 History Allergies Allergy/AdvReac Type Severity Reaction Status Date / Time shrimp Allergy ALGY-Hives Verified 11/25/22 19:22 Current Medications Generic Name Dose Route Start Last Admin Trade Name Freq PRN Reason Stop Dose Admin Amiodarone HCl 400 mg 11/26/22 18:00 11/26/22 18:56 Amiodarone 200 Mg Tablet PO 400 mg BID MODESTO Administration Apixaban 5 mg 11/25/22 18:00 11/26/22 18:58 Apixaban 5 Mg Tablet PO 5 mg BID MODESTO Administration Diltiazem HCl 60 mg 11/26/22 14:00 11/27/22 00:59 Diltiazem 60 Mg Tablet PO 60 mg Q6H MODESTO Administration Fexofenadine HCl 180 mg 11/26/22 06:00 11/27/22 05:33 Fexofenadine 60 Mg Tablet PO 180 mg QAM MODESTO Administration Diltiazem HCl 100 mg/ Sodium 100 mls @ 0 mls/hr 11/25/22 08:45 11/27/22 07:10 Chloride IV 7.5 mg/hr .Q0M MODESTO 7.5 mls/hr Titration Protocol Per Protocol Sodium Chloride 1,000 mls @ 75 mls/hr 11/25/22 14:35 11/26/22 19:48 Sodium Chloride 0.9% IV Infused .[id number] MODESTO Infusion Metoprolol Tartrate 25 mg 11/25/22 18:00 11/26/22 18:58 Metoprolol Tartrate 25 Mg Tablet PO 25 mg BID MODESTO Administration PFSH Anesthesia Medical History Atrial fibrillation with RVR Benign essential HTN Idiopathic urticaria Shoulder pain, right Surgical History No pertinent past surgical history Family History Other Diabetes Hypertension Social History Smoking and tobacco status: never smoked Alcohol intake: current Alcohol intake frequency: holidays/special occasions only Lives independently: Yes Household members: spouse and children Data Anesthesia 11/26/22 02:59 11/26/22 02:59 Short CBC 11/25/22 11/26/22 Range/Units 08:44 02:59 WBC 7.5 7.6 (4.0-10.0) 10^3/uL Hgb 16.8 H 15.1 (11.7-16.6) g/dL Hct 49.0 44.9 (42.0-52.0) % MCV 86.3 86.3 (80-94) fl Plt Count 255 242 (130-400) 10^3/cmm Neut % (Auto) 52.5 47.2 % Neut # (Auto) 3.95 3.57 (1.8-7.7) 10^3/uL BMP 11/25/22 11/26/22 08:44 02:59 Sodium 141 139 Potassium 4.2 4.1 Chloride 106 107 Carbon Dioxide 24 24 BUN 15 15 Creatinine 0.7 0.8 Glucose 91 99 Calcium 8.6 8.4 L Cardiac Enzymes 11/25/22 11/25/22 11/25/22 Range/Units 08:44 11:00 14:52 Troponin T Baseline 47 H (0-15) ng/L Troponin T 120 Minute 45.81 H (0-15) ng/L Delta Troponin T -1.19 L (0-10) ABS# Troponin T Hi Sens 6Hr 44.81 H (0-15) ng/L Troponin T Hi Sens 6Hr Delta -2.19 L (0-12) ng/L Cardiac Studies: Echocardiogram 11/25/22
--- NOTE | 2022-11-27 08:16 | PC.NURSE ---
Dr. Hill in unit to see patient. Updated on patient condition. Dr would like patient to receive 0900 cardiac medications prior to procedure.
--- NOTE | 2022-11-27 08:30 | USCV_ITS ---
Glenn Dillan Age: 47 Gender: M : 1975 Exam Date: 11/27/2022 08:33 Ordering Phys: Claudio Mobley M.D Technologist: JIMMIE [place]am [place] [facility] [place] Indication: A FIB BP: 140 / 107 HR: Rhythm: Sinus Technical Quality: Adequate MEASUREMENTS (Male / Female) Normal Values Medications Complications None Proc. Components After anesthesia team administered sedation, we advanced DENIS probe and images were obtained. FINDINGS Left Ventricle LV systolic function is normal Right Ventricle Normal in size Right Atrium Grossly normal Left Atrium Grossly dilated LA Appendage No left atrial appendage thrombus noted IA Septum Normal Mitral Valve Structurally normal mitral valve. Trace mitral regurgitation. Aortic Valve Structurally normal aortic valve. Tricuspid Valve Grossly normal Pulmonic Valve Grossly normal Pericardium Normal Aorta CONCLUSIONS LV systolic function is normal Left atrial dilation No left atrial appendage thrombus Trace mitral regurgitation Claudio Mobley MD (Electronically Signed) Final Date: 28 November 2022 12:22 S
--- NOTE | 2022-11-27 08:42 | PC.NURSE ---
DENIS and cardioversion procedure started at 0830 with a time out, verifying the patient and correct procedure. Procedure end time at 0840. Patient will be monitored post IV sedation.
--- NOTE | 2022-11-27 08:45 | ECG_ITS ---
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 Measurements Intervals [place] Rate: 76 P: 34 DC: 125 QRS: 50 QRSD: 94 T: 10 QT: 349 QTc: 394 Interpretive Statements SINUS RHYTHM Compared to ECG 11/25/2022 14:53:54 Atrial fibrillation no longer present Ventricular premature complex(es) no longer present Aberrant conduction of supraventricular beat(s) no longer present Electronically Signed On 11-27-2022 16:50:25 CDT by Claudio Mobley M.D. [id number]
[2022-11-27] MEDS: apixaban 5 mg Tablet PO (08:47)
--- NOTE | 2022-11-27 08:57 | P.PCN_ITS ---
Procedure Note: Date of procedure: 11/27/22 Pre-procedure diagnosis: Atrial fibrillation with RVR Post-procedure diagnosis: other (Normal sinus rhythm) Procedure: After anesthesia team administered sedation, we proceeded with DENIS. It confirmed no VINEET thrombus. We performed successful synchronized cardioversion with 200 J shock x1. Patient was in normal sinus rhytm. Complications: None Condition: stable Disposition: no change Coding Level of Care Code [facility]
[2022-11-27] MEDS: sodium chloride 0.9% 1,000 ML 75 ML IV (08:58)
--- NOTE | 2022-11-27 09:00 | P.PN_ITS ---
Subjective Subjective: Patient underwent successful DENIS cardiversion today. Vitals/I&O/Wt Last Vital Signs Temp 97.8 F 11/27/22 07:35 Pulse 146 H 11/27/22 07:35 Resp 16 11/27/22 07:35 BP 116/84 11/27/22 07:35 Pulse Ox 96 11/27/22 07:35 O2 Del Method 11/27/22 07:35 11/26/22 11/27/22 11/27/22 22:59 06:59 14:59 Intake Total 1620.708 / 2030.583 73.250 / 2103.833 15.583 / 15.583 Balance 1620.708 / 2029.583 73.250 / 2103.833 15.583 / 15.583 Weight last 48 hrs Weight 190 lb Weight 192 lb 3.2 oz Physical Exam 2 Narrative: GENERAL: Patient is alert, awake and oriented x3. [] NECK: No jugular vein distension. [] HEENT: No cyanosis. No icterus. No pallor. [] HEART: Regular S1 and S2. No murmur, rub or gallop. [] LUNGS: Clear to auscultate bilaterally. [] CENTRAL NERVOUS SYSTEM: Grossly nonfocal. [] EXTREMITIES: Lower extremities with 1+ edema bilaterally. Pulses palpable in the lower extremities, both dorsalis pedis and posterior tibial. [] Data 11/26/22 02:59 11/26/22 02:59 A&P Assessment and plan (1) Intermittent atrial fibrillation: Plan Patient underwent successful DENIS cardioversion back to normal rhythm. Continue amiodarone 400 mg twice daily for 1 week and then switch to 200 mg daily. Continue metoprolol Continue Eliquis 5 mg twice daily. Outpatient event monitor. Thank you for involving us with care of this patient. He is stable to be discharged home. Please call with questions. Attestations Medical Necessity Statement*: Care expected to cross 2 midnights. Coding Level of Care Code Acute Code for Chg Fwd Diagnoses Intermittent atrial fibrillation I48.0
[2022-11-27] MEDS: amiodarone 200 mg Tablet 400 MG PO (10:02)
--- NOTE | 2022-11-27 10:15 | PC.NURSE ---
Patient awake and alert requesting breakfast. Patient's diet advanced to a cardiac diet. Patient at 100% of breakfast without issues.
--- NOTE | 2022-11-27 14:55 | PM.DCS ---
Discharge Providers Date of Admission: 11/25/22 14:35 Date of Discharge: November 27, 2022 Attending Provider at Admission: Jake Cornell MD Attending Provider at Discharge: Jake Cornell MD Primary Care Provider: Vale López DO Diagnoses at Discharge Discharge Diagnosis (1) Atrial fibrillation with RVR: Status: Acute (2) Benign essential HTN: Status: Acute (3) Elevated blood pressure reading without diagnosis of hypertension: Status: Acute Reason for Visit Reason for Visit: irregular hr, dizziness Hospital Course Hospital Course Dillna is a 47-year-old male who presented to the hospital with palpitations, and was found to be in atrial fibrillation with rapid ventricular rate. He was placed on a Cardizem drip. His metoprolol which she was on at home was continued as well this is Eliquis. Troponins were slightly elevated, consistent with type II elevation. Cardizem drip was attempted to be weaned by placing him on oral Cardizem. Overall this was unsuccessful with escalating doses. Echocardiogram was obtained which demonstrated no obvious wall motion abnormalities, preserved EF. Cardiology was consulted and believed in the short-term he could benefit by initiation of amiodarone, and cardioversion. This occurred on November 27 without difficulty. During this procedure, anesthesia, it was noted he seemed predisposed to apnea events. Patient reported a past history of sleep apnea. Following cardioversion he continued in sinus rhythm and it was thought he was stable to be discharged home in the afternoon. He will continue his metoprolol, be placed on amiodarone 400 mg twice a day for a week and then 200 mg daily. We will follow-up expeditiously with cardiology as well as his primary care provider. Consideration of sleep study as an outpatient. Nuclear stress testing, and event monitor will be ordered at discharge. He was given an opportunity to ask questions, and agreed with the plan. He had no evidence of TSH abnormalities, or electrolyte abnormalities during his hospital stay. Physical Exam Narrative: General exam no apparent distress Neck is supple Cardiovascular regular rate and rhythm without murmur Lungs clear Abdomen is soft Extremities no cyanosis clubbing edema Discharge Data Studies Completed and Pending Completed Studies During Hospitalization Category Date Time Status XR chest 1V portable [id number] Stat Exams 11/25/22 08:36 Completed CV. echo complete* [id number] Routine Ultrasound 11/25/22 10:52 Completed Pending at discharge Category [place] [id number] Routine Ultrasound 11/27/22 08:30 Taken Radiology Impressions Chest X-Ray 11/25/22 08:36 IMPRESSION: Negative chest Laboratory Results WBC 7.6 10^3/uL (4.0-10.0) 11/26/22 02:59 RBC 5.20 10^6/uL (4.1-5.3) 11/26/22 02:59 Hgb 15.1 g/dL (11.7-16.6) 11/26/22 02:59 Hct 44.9 % (42.0-52.0) 11/26/22 02:59 MCV 86.3 fl (80-94) 11/26/22 02:59 MCH 29.0 pg (28.0-34.0) 11/26/22 02:59 MCHC 33.6 g/dL (30.0-36.0) 11/26/22 02:59 RDW 13.2 % (12.1-15.1) 11/26/22 02:59 Plt Count 242 10^3/cmm (130-400) 11/26/22 02:59 MPV 11.1 fL (7.4-10.4) H 11/26/22 02:59 Neut % (Auto) 47.2 % 11/26/22 02:59 Lymph % (Auto) 41.9 % 11/26/22 02:59 [place] % (Auto) 7.3 % 11/26/22 02:59 Eos % (Auto) 2.8 % 11/26/22 02:59 Baso % (Auto) 0.7 % 11/26/22 02:59 Neut # (Auto) 3.57 10^3/uL (1.8-7.7) 11/26/22 02:59 Lymph # (Auto) 3.2 10^3/uL (0.8-4.8) 11/26/22 02:59 [place] # (Auto) 0.6 10^3/uL (0.2-0.9) 11/26/22 02:59 Eos # (Auto) 0.2 10^3/uL (0.0-0.8) 11/26/22 02:59 Baso # (Auto) 0.1 10^3/uL (0.0-0.1) 11/26/22 02:59 Nucleated RBC % (auto) 0 % 11/26/22 02:59 Nucleated RBCs # 0.0 /100WBC 11/26/22 02:59 Sodium 139 mmol/L (136-145) 11/26/22 02:59 Potassium 4.1 mmol/L (3.5-5.1) 11/26/22 02:59 Chloride 107 mmol/L (98-107) 11/26/22 02:59 Carbon Dioxide 24 mmol/L (22-29) 11/26/22 02:59 Anion Gap 12.1 (5-19) 11/26/22 02:59 BUN 15 mg/dL (6-20) 11/26/22 02:59 Creatinine 0.8 mg/dL (0.7-1.2) 11/26/22 02:59 GFR Calculation 103.6 mL/min (90-130) 11/26/22 02:59 Glucose 99 mg/dL (65-115) 11/26/22 02:59 Calculated Osmolality 289 mOsm/kg (285-295) 11/26/22 02:59 Calcium 8.4 mg/dL (8.5-10.5) L 11/26/22 02:59 Magnesium 2.1 mg/dL (1.7-2.3) 11/26/22 02:59 Troponin T Baseline 47 ng/L (0-15) H 11/25/22 08:44 Troponin T 120 Minute 45.81 ng/L (0-15) H 11/25/22 11:00 Delta Troponin T -1.19 ABS# (0-10) L 11/25/22 11:00 Troponin T Hi Sens 6Hr 44.81 ng/L (0-15) H 11/25/22 14:52 Troponin T Hi Sens 6Hr Delta -2.19 ng/L (0-12) L 11/25/22 14:52 Vitals Last Vital Signs Temp 98.6 F 11/27/22 11:16 Pulse 75 11/27/22 11:16 Resp 16 11/27/22 11:16 BP 125/84 11/27/22 11:16 Pulse Ox 98 11/27/22 11:16 O2 Del Method 11/27/22 11:16 Discharge Plan Discharge Patient Disposition: Home Condition: Stable Prescriptions: New amiodarone [Pacerone] 200 mg Tablet 400 mg PO BID Qty: 51 0RF Rx Instructions: 400mg BID for 1 weeks, then 200mg a day Continued metoprolol tartrate 25 mg tablet 25 mg PO BID Qty: 60 0RF multivitamin Tablet 1 tab PO QAM Stephanie 180 mg Tablet 180 mg PO QAM Eliquis 5 mg tablet 5 mg PO BID aspirin 81 mg tablet,delayed release (DR/EC) 81 mg PO BEDTIME Discontinued amlodipine 5 mg tablet 5 mg PO QAM Discharge Orders: Discharge Order (Routine); Ordered 11/27/22 Ordered By: Jake Cornell Other Ambulatory Orders: Sestamibi Stress Test Request (Routine) Timeframe: 2 Weeks Facility: [facility] - Location: Cardiac Diagnostic Laboratory Ordered By: Jake Cornell MCT/Event Monitor 21 Days (Routine) Timeframe: 1 Day Facility: [facility] - Location: Radiology Ordered By: Jake Cornell Referrals: Vale López DO [Primary Care Provider] - 12/04/22 2:45 pm (Consider referral for sleep study at [facility]) Sondra Young FNP [Nurse Practitioner] - 12/08/22 8:45 am (Your 21 day event monitor will be put on at your appointment with Sondra Young. Please arrive a few minutes early. Thank you.) Discharge Diet: Regular Discharge Activity: Resume usual activity Patient Instructions: Amiodarone (By mouth) (Cordarone, Pacerone), A-fib (Atrial Fibrillation) (DC), Sleep Apnea (GEN), CPAP (GEN), Safe Use of Anticoagulants (DC), Sleep Study (GEN), Opioid Safety Activity Restrictions/Additional Instructions: Take all meds as prescribed. Followup as noted. See cardiology December 08, primary care provider December 04 Patient's Health Concerns: Afib/palpitations Assessment: Afib with RVR Plan of Treatment: Cardioverted. Meds as prescribed Goals: No recurrent afib Discharge Attestations Time Spent in Discharge Care*: greater than 30 min Quality Metrics Clinical Quality Measures [ No reported AMI, CVA or VTE this stay] Coding Level of Care Code 92371 Total time (in minutes) for Discharge: 33 Diagnoses Atrial fibrillation with RVR I48.91 Benign essential HTN I10 Elevated blood pressure reading without diagnosis of hypertension R03.0
== END 2022-11-27 17:05 | disposition home or self-care (01) ==
LOC: ER 10:32 → CSU 14:24
PROVIDERS: Admitting Provider Internal Medicine; Emergency Provider Family Medicine; PCP Family Medicine; Visit Provider Internal Medicine
DX: I48.91 Unspecified atrial fibrillation (principal); R00.2 Palpitations; I10 Essential (primary) hypertension; Z79.82 Long term (current) use of aspirin; Z79.01 Long term (current) use of anticoagulants; Z87.891 Personal history of nicotine dependence
CPT/HCPCS: 36415; 71045; 80048; 83735; 84484; 85025; 93005; 93306; 93312; 93320; 93325; 96365; 96366; 96375; 96376; 99291; G0378; J1160; J2704; J3490; J7030

== ENCOUNTER → 2022-12-08 09:18 | Outpatient (BNVA) | payer BC, SELFPAY | PROVIDERS: PCP Family Medicine; Visit Provider Nurse Practitioner Family | DX: I48.0 Paroxysmal atrial fibrillation (principal); I10 Essential (primary) hypertension; R07.9 Chest pain, unspecified | CPT/HCPCS: 93005 ==

== ENCOUNTER 2022-12-19 07:23 | Outpatient (CLI) | payer BC, SELFPAY ==
--- NOTE | 2022-12-19 | ECG_ITS ---
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 Interpretive Statements NAME OF STUDY: LEXISCAN SESTAMIBI STRESS TEST INDICATION:, PROCEDURE: At the baseline, the EKG revealed sinus bradycardia with a rate of [address] changes in the inferior leads.. The baseline heart was 48 bpm with a blood pressue of 140/95 mm of Hg Lexiscan was infused over a period of 20 seconds. A total of 0.4 milligrams of Lexiscan was infused. The stress phase was continued for a total of 5 minutes. Heart rate at the end of the stress phase was 62 bpm with a blood pressure 131/78 mm of Hg. The EKG at the peak infusion revealed no significant changes. Sestamibi was injected 20 seconds after the Lexiscan infusion. Heart rate at the end of the recovery phase was 60 bpm with a blood pressure of 132/87 mm of Hg. CONCLUSION: 1. No significant EKG changes with the LexiScan infusion 2. No LexiScan induced chest pain or cardiac arrhythmia 3. Normal blood pressure and heart rate response 4. Sestamibi/sestamibi perfusion scan pending; see separate report. Electronically Signed On 12-22-2022 11:44:17 CDT by Clifton Ewing M.D. [id number]
[2022-12-19 08:30] VITALS: BMI 29.0
--- NOTE | 2022-12-19 08:49 | NMCV_ITS ---
NM maynor perf SPECT r/s* 22014 Dillan Elizabeth Age: 47 Gender: M : 1975 Exam Date: 12/19/2022 08:45 Ordering Phys: Isaías Tobias DO Technologist: PEYMAN Cooper Exam Location: [facility] Indications: AFIB STRESS TEST Please see separate stress test report in [facility] for full findings IMAGE PROTOCOL Rest/Stress 1 Lexiscan Day Radiopharmaceutical Dose (mCi) Administration Site Administered by Rest: Tc-99m 10.3 IV PEYMAN Dos Santos Sestamibi Stress:Tc-99m 32.9 IV PEYMAN Dos Santos Sestamibi Rest: 19-Dec-2022 60 Discovery 630 Stress: 19-Dec-2022 30 Discovery 630 0.4mg Lexiscan. Images obtained in supine and prone position. SPECT RESULTS Technical Quality: Excellent Raw Data Analysis: Normal Image Corrections: No attenuation or motion correction applied Summed Stress Score: 0 Summed Rest Score: 0 Summed Difference Score: 0 PERFUSION FINDINGS Fairly uniform myocardial tracer uptake. Normal significant perfusion abnormalities FUNCTIONAL RESULTS (calculated via Gated SPECT) Stress Image LV EF (%): 80 Stress EDV (mL):95 TID: 0.94 Stress ESV (mL):19 FUNCTIONAL FINDINGS: Segmental wall motion analysis revealing no gross wall motion abnormalities IMPRESSIONS 1. Unremarkable Myocardial perfusion imaging 2. Normal LV ejection fraction of 80% 3. LV wall motion analysis revealing no gross wall motion abnormalities. 4. Normal LV volume Low probability for coronary ischemia, based on the above findings Dr Clifton Ewing MD [facility] (Electronically Signed) Final Date: 19 December 2022 16:47 S
[2022-12-19 09:37] VITALS: BP 132/87; PULSE 62
[2022-12-19] MEDS: regadenoson 0.4 Mg/5 ml Syringe IVP (09:38)
== END 2022-12-19 07:24 | disposition home or self-care (01) ==
PROVIDERS: PCP Family Medicine; Visit Provider Family Medicine
DX: I48.91 Unspecified atrial fibrillation (principal)
CPT/HCPCS: 36415; 78452; 93017; 96374; A9500; J2785

== ENCOUNTER → 2023-01-09 09:25 | Outpatient (BNVA) | payer BC, SELFPAY | PROVIDERS: PCP Family Medicine; Visit Provider Family Medicine | DX: R10.9 Unspecified abdominal pain (principal); Z12.5 Encounter for screening for malignant neoplasm of prostate; I10 Essential (primary) hypertension | CPT/HCPCS: 80061; 81000; G0103 ==

== ENCOUNTER 2023-04-06 09:50 | Outpatient (CLI) | payer BC, SELFPAY ==
--- NOTE | 2023-04-06 10:00 | CT_ITS ---
WS: [id number] CT chest w con* [id number] HISTORY: mass of left lung TECHNIQUE: Axial imaging performed through the thorax. Coronal and sagittal reformats are submitted. All CT scans at [facility] use at least one of these dose optimization techniques: automated exposure control; mA and/or kV adjustment per patient size (includes targeted exams where dose is mat ched to clinical indication); or iterative reconstruction. CONTRAST: Omnipaque 350; 100 mL IV. DLP: 277.31 mGy.cm COMPARISON: Chest radiograph 11/19/2022 and 11/25/2022 Lungs and central airway: No mass identified in the left lower lobe adjacent to the heart. There are a few scattered micronodules which are less than 3 mm scattered throughout the lungs. There are benig n perifissural nodules. No suspicious mass or nodule. No pneumonia. Pleura: Normal. No pleural effusion. Heart and pericardium: Normal size heart with no pericardial effusion. Mediastinum and moy: No mediastinum or hilar adenopathy. Vessels: Normal size aortic and pulmonary artery. No coronary artery calcifications. Chest wall and lower neck: No soft tissue masses. Upper abdomen: Mild hyperplasia left adrenal gland. Osseous structures: Mild increase in the upper thoracic kyphosis. Mild spondylitic changes. No destru ctive bone lesions. IMPRESSION: 1. No pulmonary mass identified at the left cardiac apex. 2. Small micronodules and perifissural nodules. These are typically benign. 3. No adenopathy. 4. Normal size heart.
[2023-04-06] MEDS: iohexol 350 mg/mL 500 mL Btl (per mL) IV (10:06)
== END 2023-04-06 09:51 | disposition home or self-care (01) ==
PROVIDERS: PCP Family Medicine; Visit Provider Family Medicine
DX: R91.8 Other nonspecific abnormal finding of lung field (principal)
CPT/HCPCS: 71260; Q9967

== ENCOUNTER 2023-08-31 09:00 | Outpatient (CLI) | payer BC, SELFPAY | END 2023-08-31 09:01 | disposition home or self-care (01) | LOC: SLEEP 09-01 15:44 | PROVIDERS: PCP Family Medicine; Visit Provider Family Medicine | DX: G47.33 Obstructive sleep apnea (adult) (pediatric) (principal); G47.10 Hypersomnia, unspecified; G47.36 Sleep related hypoventilation in conditions classified elsewhere | CPT/HCPCS: G0399 ==

== ENCOUNTER 2023-12-07 11:32 | Outpatient (CLI) | payer BC, SELFPAY ==
--- NOTE | 2023-12-07 11:48 | XR_ITS ---
WS: [id number] Exam: XR chest 2V* [id number] Date/Time of Exam: 12/07/2023 11:57 AM Reason For Exam: sob Comparison 11/25/2022. Findings: The lungs are clear and fully expanded. Costophrenic angles are sharp. No infiltrates. Bronchovascula r relief appears normal. Cardiac silhouette is unremarkable. Bony elements are intact. IMPRESSION: Unremarkable chest radiograph.
== END 2023-12-07 11:33 | disposition home or self-care (01) ==
LOC: RAD 11:34
PROVIDERS: PCP Family Medicine; Visit Provider Nurse Practitioner Family
DX: R06.02 Shortness of breath (principal)
CPT/HCPCS: 71046

== ENCOUNTER 2024-01-22 06:24 | Emergency (ER) | payer BC, SELFPAY ==
[2024-01-22 06:30] VITALS: BP 142/98; PULSE 93; RESP 21; TEMP 36.6; O2SAT 97; BMI 29.6
--- NOTE | 2024-01-22 06:30 | XRR_ITS ---
PROCEDURE INFORMATION: Exam: XR Chest Exam date and time: 01/22/2024 6:55 AM Age: 48 years old Clinical indication: Cough and dyspnea; Patient HX: Irregular heart beat; Additional info: Dyspnea/cough TECHNIQUE: Imaging protocol: Radiologic exam of the chest. Views: 1 view. COMPARISON: CR XR chest 2V* [id number] 12/07/2023 11:59 AM FINDINGS: Lungs: The lung parenchyma is clear. Pleural spaces: No pneumothorax. No large pleural effusion. Heart/Mediastinum: The cardiomediastinal silhouette is within normal limits. Bones/joints: Unremarkable. XR/XR chest 1V portable [id number] IMPRESSION: No acute cardiopulmonary abnormality.
--- NOTE | 2024-01-22 06:31 | ECG_ITS ---
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 Measurements Intervals [place] Rate: 125 P: 0 [place]: 0 QRS: 56 QRSD: 96 T: 8 QT: 303 QTc: 437 Interpretive Statements ATRIAL FIBRILLATION WITH RAPID VENTRICULAR RESPONSE Compared to ECG 11/27/2022 08:52:58 Sinus rhythm no longer present Electronically Signed On 01-22-2024 12:33:04 CDT by Claudio Mobley M.D. [id number] f
[2024-01-22] MEDS: dilTIAZem 5 mg/mL SDV 5 mL 20 MG IVP (06:47)
[2024-01-22] MEDS: dilTIAZem 100 MG in sodium chloride 0.9% (add-van) 100 ML IV (06:47)
[2024-01-22 06:56] LABS: Basophils % 0.6 %; Eosinophils # 0.2 10^3/uL (0.0-0.8); Eosinophils % 3.9 %; Hematocrit 45.8 % (37-53); Lymphocytes # 2.3 10^3/uL (0.8-4.8); Lymphocytes % 44.3 %; Mean Corpuscular HGB Conc 34.3 g/dL (30-55); Mean Corpuscular Hemoglobin 29.4 pg (27-33); Mean Corpuscular Volume 85.8 fl (82-101); Mean Platelet Volume 10.8 fL (7.4-10.4); Monocytes # 0.4 10^3/uL (0.2-0.9); Monocytes % 8.7 %; Neutrophils # 2.16 10^3/uL (1.8-7.7); Neutrophils % 42.5 %; Nucleated Red Blood Cells % 0 %; Platelet Count 210 10^3/cmm (157-399); Red Blood Count 5.34 10^6/uL (3.85-5.65); White Blood Count 5.08 10^3/uL (3.29-11.43)
[2024-01-22 07:04] LABS: Troponin(5th) Baseline 41 ng/L (0-15)
[2024-01-22 07:11] VITALS: BP 108/77; PULSE 64; RESP 19; O2SAT 97
[2024-01-22 07:11] LABS: Alanine Aminotransferase 37 U/L (0-41); Albumin Level 4.2 g/dL (3.5-5.2); Alkaline Phosphatase 88 U/L (40-130); Anion Gap 13.7 (5-19); Aspartate Amino Transferase 26 U/L (0-40); Blood Urea Nitrogen 13 mg/dL (6-20); Calcium 8.1 mg/dL (8.5-10.5); Carbon Dioxide 23 mmol/L (22-29); Chloride 105 mmol/L (98-107); Creatinine Clr Calc Pharmacy 108.4981; Globulin 3.1 g/dL (1.3-4.6); Glomerular Filtration Rate 90.1 mL/min (90-130); Glucose 106 mg/dL (65-115); Osmolality Calculated 287 mOsm/kg (285-295); Potassium 3.7 mmol/L (3.5-5.1); Sodium 138 mmol/L (136-145); Thyroid Stimulating Hormone 0.02 uIU/mL (0.27-4.20); Total Protein 7.3 g/dL (6.6-8.7)
--- NOTE | 2024-01-22 07:36 | W.ED.ARRPALP ---
HPI - Arrhythmia/Palpitations General: Chief Complaint: Arrhythmia/Palpitations Stated Complaint: irregular heart beat complaint Time Seen by Provider: 01/22/24 06:30 Source: patient Mode of arrival: ambulatory History of Present Illness: 48-year-old male presents to the emergency room with complaint of rapid heart rate. Patient has a known history of atrial fibrillation he is on amiodarone and metoprolol couple of months ago he states they split the doses but otherwise has had no change has not had any missed doses. When this was first noted he underwent cardioversion he has not had any ablation. He is on apixaban. On arrival his heart rates in the 120s 130s he did take his medications this morning at the usual time. He denies any chest pain. No swelling in his legs no orthopnea. MD complaint: rapid heart beat and heart racing Duration: intermittent Severity: moderate Arrhythmia history: atrial fibrillation Associated symptoms: Deny anxiety, cough, diaphoresis, muscle cramps, nausea, paresthesias, pre-syncope, sense of impending doom, short of breath, syncope or vomiting Treatments prior to arrival: beta-florence and amiodarone Review of Systems Const: Denies: fever(s), chills or diaphoresis Card: Reports: palpitations and irregular heart rhythm; Denies: chest pain, edema, swelling of feet/ankles, syncope, pre-syncope, dyspnea on exertion or orthopnea Resp: Denies: dyspnea GI: Denies: abdominal pain, nausea or vomiting : Denies: dysuria, urinary frequency or urinary urgency Musc: Denies: muscle cramps Skin/Breast: Denies: rash Psych: Denies: anxiety PFSH ED PFSH: Medical History Idiopathic urticaria Atrial fibrillation with RVR Benign essential HTN Shoulder pain, right Surgical History No pertinent past surgical history Family History Other Diabetes Hypertension Social History Smoking and tobacco/nicotine status: never used tobacco/nicotine Alcohol intake: current Alcohol intake frequency: holidays/special occasions only Substance/Drug Use: never Lives independently: Yes Household members: spouse and children Physical Exam Const: GENERAL APPEARANCE: cooperative and comfortable ORIENTATION/CONSCIOUSNESS: Yes awake, Yes oriented to person, Yes oriented to place and Yes oriented to time HENMT: COMMON NORMALS: normocephalic, atraumatic and hearing grossly normal bilaterally HEAD & SCALP: normocephalic and atraumatic Resp: COMMON NORMALS: normal respiratory effort, No retractions, No use of accessory muscles and clear to auscultation bilaterally AUSCULTATION: clear to auscultation bilaterally Cardio: COMMON NORMALS: No murmurs present (Cardio) RATE: tachycardic RHYTHM: abnormal rhythm irregularly irregular GI: COMMON NORMALS: Soft to palpation and No hepatosplenomegaly present AUSCULTATION: Yes normoactive bowel sounds PALPATION: Yes Soft to palpation, No Tenderness to palpation present (GI), No Guarding due to palpation present (GI) and Yes No hepatosplenomegaly present Extremity: COMMON NORMALS: normal to inspection, capillary refill normal, no clubbing, cyanosis or edema, no calf tenderness and no pedal edema Neuro: SENSORIUM/ORIENTATION: Yes oriented to person, Yes oriented to place and Yes oriented to time Skin: COMMON NORMALS: no rashes or lesions noted GENERAL SKIN EXAM: no rashes or lesions noted Course Vital Signs: Vital signs: Vital Signs Temperature 97.9 F 01/22/24 06:30 Pulse Rate 78 01/22/24 08:53 Respiratory Rate 15 01/22/24 08:53 Blood Pressure 104/79 01/22/24 08:53 Pulse Oximetry 97 01/22/24 08:53 Oxygen Delivery Me thod Room Air 01/22/24 07:11 MDM - Arrhythmia/Palpitations Medical Decision Making Initial Cardizem bolus and drip started we are able to titrate him back down his rate became controlled. He is asymptomatic at this time feeling much better. We are able to titrate him off eventually talk to Dr. Mobley his usual early childhood education specialist he recommends increasing his amiodarone to 200 mg twice daily for 1 week then 100 mg twice daily. Follow-up in cardiology clinic for further adjustments. Return if has further problems. His TSH is low I suspect this is a result of his amiodarone. I contacted his primary care doctor for further follow-up as an outpatient. Patient has an appointment with Dr. López in approximately 3 weeks. Medical Records I reviewed the patient's medical records. Lab Data I reviewed the patient's lab results. 01/22/24 06:38 01/22/24 06:38 Radiology Impressions Chest X-Ray 01/22/24 06:30 IMPRESSION: No acute cardiopulmonary abnormality. Laboratory Results WBC 5.08 10^3/uL (3.29-11.43) 01/22/24 06:38 RBC 5.34 10^6/uL (3.85-5.65) 01/22/24 06:38 Hgb 15.70 g/dL (11.27-16.99) 01/22/24 06:38 Hct 45.8 % (37-53) 01/22/24 06:38 MCV 85.8 fl (82-101) 01/22/24 06:38 MCH 29.4 pg (27-33) 01/22/24 06:38 MCHC 34.3 g/dL (30-55) 01/22/24 06:38 RDW 13.0 % (12.1-15.1) 01/22/24 06:38 Plt Count 210 10^3/cmm (157-399) 01/22/24 06:38 MPV 10.8 fL (7.4-10.4) H 01/22/24 06:38 Neut % (Auto) 42.5 % 01/22/24 06:38 Lymph % (Auto) 44.3 % 01/22/24 06:38 [place] % (Auto) 8.7 % 01/22/24 06:38 Eos % (Auto) 3.9 % 01/22/24 06:38 Baso % (Auto) 0.6 % 01/22/24 06:38 Neut # (Auto) 2.16 10^3/uL (1.8-7.7) 01/22/24 06:38 Lymph # (Auto) 2.3 10^3/uL (0.8-4.8) 01/22/24 06:38 [place] # (Auto) 0.4 10^3/uL (0.2-0.9) 01/22/24 06:38 Eos # (Auto) 0.2 10^3/uL (0.0-0.8) 01/22/24 06:38 Baso # (Auto) 0.0 10^3/uL (0.0-0.1) 01/22/24 06:38 Nucleated RBC % (auto) 0 % 01/22/24 06:38 Nucleated RBCs # 0.0 /100WBC 01/22/24 06:38 Sodium 138 mmol/L (136-145) 01/22/24 06:38 Potassium 3.7 mmol/L (3.5-5.1) 01/22/24 06:38 Chloride 105 mmol/L (98-107) 01/22/24 06:38 Carbon Dioxide 23 mmol/L (22-29) 01/22/24 06:38 Anion Gap 13.7 (5-19) 01/22/24 06:38 BUN 13 mg/dL (6-20) 01/22/24 06:38 Creatinine 0.9 mg/dL (0.7-1.2) 01/22/24 06:38 GFR Calculation 90.1 mL/min (90-130) 01/22/24 06:38 Glucose 106 mg/dL (65-115) 01/22/24 06:38 Calculated Osmolality 287 mOsm/kg (285-295) 01/22/24 06:38 Calcium 8.1 mg/dL (8.5-10.5) L 01/22/24 06:38 Total Bilirubin 1.0 mg/dL (0.15-1.2) 01/22/24 06:38 AST 26 U/L (0-40) 01/22/24 06:38 ALT 37 U/L (0-41) 01/22/24 06:38 Alkaline Phosphatase 88 U/L (40-130) 01/22/24 06:38 Troponin T Baseline 41 ng/L (0-15) H 01/22/24 06:38 Troponin T 120 Minute 41.02 ng/L (0-15) H 01/22/24 07:30 Delta Troponin T 0.02 ABS# (0-10) 01/22/24 07:30 Total Protein 7.3 g/dL (6.6-8.7) 01/22/24 06:38 Albumin 4.2 g/dL (3.5-5.2) 01/22/24 06:38 Globulin 3.1 g/dL (1.3-4.6) 01/22/24 06:38 TSH 0.02 uIU/mL (0.27-4.20) L 01/22/24 06:38 All radiology interpretation(s) finalized by discharge Discharge Plan Discharge Patient Disposition: Home Clinical Impression: Intermittent atrial fibrillation, Abnormal TSH Condition: Stable Prescriptions: No Action amiodarone 100 mg tablet 100 mg PO DAILY Qty: 90 3RF (DME) CPAP with mask and supplies See Rx Instructions .Route .MEDSUPPLY Qty: 1 0RF Rx Instructions: As directed metoprolol tartrate 25 mg tablet 12.5 mg PO BID Qty: 90 1RF Eliquis 5 mg tablet 5 mg PO BID Qty: 60 5RF Discharge Orders: Discharge ED (Routine); Ordered 01/22/24 Ordered By: Isaías Tobias Referrals: Vale López DO [Primary Care Provider] - Discharge Diet: Usual diet Discharge Activity: Resume usual activity Patient Instructions: Opioid Safety, Pain Management Activity Restrictions/Additional Instructions: Thank you for choosing [facility] for your healthcare needs today. It is very important that you follow up as instructed or that you return to the Emergency Department should you have concerns or if your condition changes or worsens in any way. You were seen today for an episode of atrial fibrillation. We discussed your case with Dr. Mobley. He recommends that you increase your amiodarone to 200 mg twice a day for 7 days then 100 mg twice a day. You should contact Dr. Mobley's office to arrange for follow-up as an outpatient. Coding Level of Care Code ED Healthcare Management for Ifeanyi Lima
[2024-01-22 08:03] VITALS: BP 107/76; PULSE 76; O2SAT 98
--- NOTE | 2024-01-22 08:32 | ECG_ITS ---
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 Measurements Intervals [place] Rate: 86 P: 0 [place]: 0 QRS: 47 QRSD: 97 T: 18 QT: 369 QTc: 443 Interpretive Statements ATRIAL FIBRILLATION Compared to ECG 01/22/2024 06:31:53 No significant changes Electronically Signed On 01-22-2024 12:35:12 CDT by Claudio Mobley M.D. [id number]
[2024-01-22 08:39] LABS: Troponin 5 2HR 41.02 ng/L (0-15); Troponin 5 2HR Delta 0.02 ABS# (0-10)
[2024-01-22 08:53] VITALS: BP 104/79; PULSE 78; RESP 15; O2SAT 97
== END 2024-01-22 08:52 | disposition home or self-care (01) ==
PROVIDERS: Emergency Provider Family Medicine; PCP Family Medicine
DX: I48.91 Unspecified atrial fibrillation (principal); Z79.01 Long term (current) use of anticoagulants; R94.6 Abnormal results of thyroid function studies; I10 Essential (primary) hypertension
CPT/HCPCS: 71045; 80053; 84443; 84484; 85025; 93005; 96365; 96375; 99285; J3490

== ENCOUNTER → 2024-02-11 08:37 | Outpatient (BNVA) | payer BC, SELFPAY | PROVIDERS: PCP Family Medicine; Visit Provider Family Medicine | DX: R79.89 Other specified abnormal findings of blood chemistry (principal); I10 Essential (primary) hypertension; I48.91 Unspecified atrial fibrillation | CPT/HCPCS: 84439; 84443; 84480 ==

== ENCOUNTER → 2024-02-23 09:05 | Outpatient (BNVA) | payer BC, SELFPAY | PROVIDERS: PCP Family Medicine; Visit Provider Nurse Practitioner Family | DX: R10.9 Unspecified abdominal pain (principal); R39.9 Unspecified symptoms and signs involving the genitourinary system; R30.0 Dysuria | CPT/HCPCS: 81000; 87086 ==

== ENCOUNTER 2024-03-10 07:52 | Outpatient (CLI) | payer BC, SELFPAY ==
--- NOTE | 2024-03-10 07:45 | US_ITS ---
WS: [id number] ULTRASOUND THYROID TECHNIQUE: Ultrasound of the thyroid. CLINICAL INFORMATION: elevated T4 COMPARISON: None. FINDINGS: Thyroid: Right and left thyroid lobes are normal in size and echotexture. Right thyroid lobe: 6.0 cm x 1.7 cm x 2.4 cm Complex RIGHT inferior thyroid nodule measuring 1.8 x 1.4 x 1.7 cm. Incidental cyst RIGHT thyroid measuring 5.8 mm. Left thyroid lobe: 3.6 cm x 1.4 cm x 2.1 cm. Isthmus: 0.2 mm. Hypoechoic well-circumscribed ovoid nodule along the isthmus appears at least partially cystic measur ing 1.1 x 0.8 x 0.6 cm. Cervical lymphadenopathy: None. US/US thyroid [id number] IMPRESSION: Complex hypoechoic RIGHT inferior thyroid nodule measuring 1.8 x 1.4 x 1.7 cm. Recommend 12-month follow-up. TIRADS Category 3: Mildly suspicious (total points = 3) FNA if e2.5 cm Follow if e1.5 cm (at 1, 3, 5 years)
== END 2024-03-10 07:53 | disposition home or self-care (01) ==
PROVIDERS: PCP Family Medicine; Visit Provider Family Medicine
DX: R79.89 Other specified abnormal findings of blood chemistry (principal); E04.1 Nontoxic single thyroid nodule
CPT/HCPCS: 76536; 83516

== ENCOUNTER → 2024-03-14 08:28 | Outpatient (BNVA) | payer BC, SELFPAY | PROVIDERS: PCP Family Medicine; Visit Provider Nurse Practitioner Family | DX: R39.9 Unspecified symptoms and signs involving the genitourinary system (principal); N20.0 Calculus of kidney; R10.9 Unspecified abdominal pain; I48.19 Other persistent atrial fibrillation; R31.9 Hematuria, unspecified | CPT/HCPCS: 81000; 85025; 87086 ==

== ENCOUNTER 2024-03-23 08:16 | Outpatient (CLI) | payer BC, SELFPAY ==
--- NOTE | 2024-03-23 08:30 | CTR_ITS ---
PROCEDURE INFORMATION: Exam: CT Abdomen And Pelvis Without Contrast Exam date and time: 03/23/2024 8:33 AM Age: 48 years old Clinical indication: Pain; Other: Left flank; Additional info: Hematuria, left side flank pain TECHNIQUE: Imaging protocol: Computed tomography of the abdomen and pelvis without contrast. Radiation optimization: All CT scans at this facility use at least one of these dose optimization techniques: automated exposure control; mA and/or kV adjustment per patient size (includes targeted exams where dose is matched to clinical indication); or iterative reconstruction. COMPARISON: CT chest w con* [id number] 04/06/2023 10:05 AM RADIATION DOSE METRICS: Total DLP (mGy-cm): 341.53 FINDINGS: Lungs: Lung bases are clear as visualized. Liver: Normal. No mass. Gallbladder and biliary ducts: There are gallstones within the gallbladder. No pericholecystic inflammatory change is noted. Pancreas: Normal. No ductal dilation. Spleen: Normal. No splenomegaly. Adrenal glands: Normal. No mass. Kidneys and ureters: The right kidney has a normal noncontrast appearance. Nonobstructing renal calculi are noted on the left. No ureteral calculi are identified. No hydronephrosis is noted. Stomach and bowel: Unremarkable. No obstruction. No mucosal thickening. Appendix: No evidence of appendicitis. Intraperitoneal space: Unremarkable. No free air. No significant fluid collection. Vasculature: Unremarkable. No abdominal aortic aneurysm. There is calcified plaque involving the aorta and its branch vessels. Lymph nodes: Unremarkable. No enlarged lymph nodes. Urinary bladder: Unremarkable as visualized. Reproductive: Unremarkable as visualized. Bones/joints: Unremarkable. No acute fracture. Soft tissues: There is a small fat filled periumbilical hernia. CT/CT kidney stone [id number] IMPRESSION: 1. Cholelithiasis. 2. Nephrolithiasis on the left.
== END 2024-03-23 08:17 | disposition home or self-care (01) ==
LOC: RAD 08:16
PROVIDERS: PCP Family Medicine; Visit Provider Nurse Practitioner Family
DX: K80.20 Calculus of gallbladder without cholecystitis without obstruction (principal); N20.0 Calculus of kidney; K42.9 Umbilical hernia without obstruction or gangrene; R10.9 Unspecified abdominal pain; R31.9 Hematuria, unspecified; I70.0 Atherosclerosis of aorta
CPT/HCPCS: 74176

== ENCOUNTER → 2024-03-30 15:10 | Outpatient (BNVA) | payer BC, SELFPAY | PROVIDERS: PCP Family Medicine; Visit Provider Family Medicine | DX: N20.0 Calculus of kidney (principal) | CPT/HCPCS: 81000 ==

== ENCOUNTER → 2024-05-09 09:03 | Outpatient (BNVA) | payer BC, SELFPAY | PROVIDERS: PCP Family Medicine; Visit Provider Internal Medicine | DX: E07.9 Disorder of thyroid, unspecified (principal) | CPT/HCPCS: 83516; 84439; 84443; 84480; 86376; 86800 ==

== ENCOUNTER → 2024-06-16 15:55 | Outpatient (BNVA) | payer BC, SELFPAY | PROVIDERS: PCP Family Medicine; Visit Provider Internal Medicine Cardiovascular Disease | DX: R00.1 Bradycardia, unspecified (principal); R07.9 Chest pain, unspecified | CPT/HCPCS: 93005 ==

== ENCOUNTER → 2024-08-10 13:07 | Outpatient (BNVA) | payer BC, SELFPAY | PROVIDERS: PCP Family Medicine; Visit Provider Internal Medicine | DX: E05.90 Thyrotoxicosis, unspecified without thyrotoxic crisis or storm (principal); E04.1 Nontoxic single thyroid nodule | CPT/HCPCS: 36415; 84439; 84443; 84480 ==

== ENCOUNTER 2024-09-13 07:39 | Outpatient (CLI) | payer BC, SELFPAY ==
--- NOTE | 2024-09-13 08:00 | NM_ITS ---
WS: [id number] NUCLEAR MEDICINE 24 HOUR I-123 THYROID UPTAKE INDICATION: Hyperthyroidism TECHNIQUE: I-123 24 HOUR THYROID UPTAKE WITH PLANAR IMAGING. [ ] [facility] 123 COMPARISON: Ultrasound 03/10/2024 FINDINGS: 24-hour thyroid uptake 14.84% Slight patchy uptake in the thyroid. Decreased activity in a RIGHT lower lobe thyroid nodule correspo nding to the complex nodule in the prior ultrasound. This can be further evaluated with FNA. NORMAL 24H THRYOID UPTAKE 8-35% NM/NM thyroid uptake multi [id number] IMPRESSION: Normal 24-hour thyroid uptake 14.84% Consider FNA of the RIGHT lower thyroid nodule which demonstrates decreased rad iotracer uptake
== END 2024-09-13 07:40 | disposition home or self-care (01) ==
LOC: RAD 07:40
PROVIDERS: PCP Family Medicine; Visit Provider Internal Medicine
DX: E04.1 Nontoxic single thyroid nodule (principal); E05.90 Thyrotoxicosis, unspecified without thyrotoxic crisis or storm; R93.89 Abnormal findings on diagnostic imaging of other specified body structures
CPT/HCPCS: 78014; A9516

== ENCOUNTER 2024-11-13 10:04 | Emergency (ER) | payer BC, SELFPAY ==
[2024-11-13 10:26] VITALS: BP 151/108; PULSE 70; RESP 18; TEMP 36.8; O2SAT 98; BMI 28.8
--- NOTE | 2024-11-13 10:28 | CTR_ITS ---
PROCEDURE INFORMATION: Exam: CT Abdomen And Pelvis Without Contrast Exam date and time: 11/13/2024 10:35 AM Age: 49 years old Clinical indication: Abdominal pain; Flank; Left TECHNIQUE: Imaging protocol: Computed tomography of the abdomen and pelvis without contrast. Radiation optimization: All CT scans at this facility use at least one of these dose optimization techniques: automated exposure control; mA and/or kV adjustment per patient size (includes targeted exams where dose is matched to clinical indication); or iterative reconstruction. COMPARISON: CT kidney stone [id number] 03/23/2024 8:33 AM RADIATION DOSE METRICS: Total DLP (mGy-cm): 726.41 FINDINGS: Diaphragm: A small hiatal hernia is noted. Liver: Normal. No mass. Gallbladder and biliary ducts: Note is made of cholelithiasis. No gallbladder distension. Pancreas: Normal. No ductal dilation. Spleen: Normal. No splenomegaly. Adrenal glands: Normal. No mass. Kidneys and ureters: There is left nephrolithiasis with an 11 x 17 mm calculus noted within the lower pole of the left kidney and additional smaller nonobstructing calculus within the lower pole. No ureteral calculus or hydronephrosis. Stomach and bowel: Unremarkable. No obstruction. No mucosal thickening. Appendix: No evidence of appendicitis. Intraperitoneal space: Unremarkable. No free air. No significant fluid collection. Vasculature: Unremarkable. No abdominal aortic aneurysm. Lymph nodes: Unremarkable. No enlarged lymph nodes. Urinary bladder: There is mild bladder wall thickening. Reproductive: Unremarkable as visualized. Bones/joints: No acute fractures. There is right convexity lumbar scoliosis. Mild degenerative changes of the lumbar spine. Soft tissues: There has been development of a focal area of increased density within the left anterior pelvis medial to the left acetabulum which measures 6.9 x 4.5 cm and produces mild mass effect on and slight displacement of the urinary bladder. There is mild stranding within the pelvis. CT/CT kidney stone [id number] IMPRESSION: 1. Development of a hyperdense lesion within the left lower pelvis, suspicious for a hematoma of uncertain etiology. Correlate clinically for history of trauma or coagulopathy. A soft tissue mass however is not excluded. Clinical correlation is suggested and follow-up CT of the abdomen and pelvis with contrast could be obtained for further evaluation. 2. Left nephrolithiasis. No ureteral calculus or hydronephrosis. 3. Cholelithiasis 4. No acute pelvic fractures
--- NOTE | 2024-11-13 10:30 | ED_ITS ---
HPI - Abdominal Pain 2 General: Chief Complaint: Back Pain/Injury Stated Complaint: surgery 5 days ago, blood in urine Time Seen by Provider: 11/13/24 10:18 History of Present Illness: 49-year-old male reports last night in t he evening he started having some left flank pain and left sided abdominal pain. The intensity of the pain seem to wax and wane. There was nothing he could do that made it better or worse. He noticed he had some hematuria. He remembers that in the past he had some left- sided kidney stones. He reports his pain was moderate but never got intense. He did have cardiac ablation on 11/08/2024. He went to urgent care and they informed him because he had an ablation that he should probably go to the ER to have his hematuria checked. Patient reports he is not sure exactly how or if the cardiac ablation could be related. He currently rates his discomfort as a 3 out of 10. He is on Eliquis because of his history of A-fib. Associated Symptoms: Reports hematuria; Denies chills, coffee ground emesis, constipation, GI cramping, diarrhea, dysuria, fever(s), hematemesis, nausea, syncope and vomiting Related Data Previous Rx's ?Medication ?Instructions ?Recorded methimazole 5 mg tablet 5 mg PO DAILY #90 tabs 08/11 apixaban 5 mg tablet (Eliquis) 5 mg PO BID #60 tabs metoprolol tartrate 25 mg tablet 25 mg PO DAILY PRN ta chycardia #30 08/16/24 tabs Allergies Allergy/AdvReac Type Severity Reaction Status Date / Time No Known Allergies Allergy Verified 11/13/24 10:32 Review of Systems 2 General: Reports: 10 or more systems reviewed and unremarkable except in HPI and below Const: Denies: fever(s), chills or body aches Eyes: Denies: change in vision ENMT: Denies: throat pain Card: Denies: chest pain, edema or syncope Resp: Denies: dyspnea or productive cough GI: Denies: nausea, vomiting, hematemesis, coffee ground emesis, diarrhea, constipation or GI cramping : Reports: flank pain and hematuria; Denies: dysuria, urinary frequency, change in urine stream, genital pain, testicular pain or scrotal swelling Musc: Denies: neck pain, back pain, extremity pain or extremity swelling Skin/Breast: Denies: rash or erythema Neuro: Denies: headache(s), numbness in extremities, weakness in extremities, lack of coordination or difficulty walking PFSH ED 2 PFSH: Medical History Idiopathic urticaria Atrial fibrillation with RVR Benign essential HTN Shoulder pain, right Surgical History No pertinent past surgical history Family History Other Diabetes Hypertension Social History Smoking and tobacco/nicotine status: former use of tobacco/nicotine Alcohol intake: current Alcohol intake frequency: holidays/special occasions only Substance/Drug Use: never Lives independently: Yes Household members: spouse and children Physical Exam 2 Const: COMMON NORMALS: no limitations, alert and well nourished EXAM LIMITATIONS: no altered mental status HENMT: COMMON NORMALS: normocephalic, atraumatic and external ears normal H EAD & SCALP: normocephalic and atraumatic EXTERNAL EAR: Yes external ears normal MOUTH: no muffled voice Eye: COMMON NORMALS: conjunctivae normal and no scleral icterus C ONJUNCTIVA: Yes conjunctivae normal Neck/C-Spine: COMMON NORMALS: no JVD GENERAL: Yes normal visual inspection and Yes trachea midline Resp: COMMON NORMALS: normal respiratory effort, No use of accessory muscles and clear to auscultation bilaterally AUSCULTATION: clear to auscultation bilaterally Cardio: COMMON NORMALS: no JVD, regular rate and regular rhythm RATE: r egular rate RHYTHM: regular rhythm GI: COMMON NORMALS: Soft to palpation and non-tender PALPATION: Yes Soft to palpation, Yes Tenderness to palpation present (GI) Details: LLQ (Mild), No Guarding due to palpation present (GI) and No Palpable mass present Back/Pelvis: OTHER: Mild left CVA percussion ttp w/o guarding. Neg right CVA ttp. Extremity: COMMON NORMALS: normal to inspection Neuro: COMMON NORMALS: moves all extremities, no focal motor deficits and no sensory deficits noted SENSORIUM/ORIENTATION: Yes alert SPEECH: speech normal Psych: COMMON NORMALS: mental status grossly normal, Normal thought process present, cooperative, normal affect and speech normal SPEECH: Yes normal speech THOUGHT PROCESS: Normal thought process present Skin: COMMON NORMALS: turgor normal and no jaundice GENERAL SKIN EXAM: t urgor normal OTHER: There is an expected amount of bruising where the patient had venous access in the left groin AND right groin. No hematomas noted,no infection. Course 2 Vital Signs: Vital signs: Vital Signs Temperature 98.3 F 11/13/24 10:26 Pulse Rate 70 11/13/24 10:26 Respiratory Rate 18 11/13/24 10:26 Blood Pressure 151/108 11/13/24 10:26 Pulse Oximetry 98 11/13/24 10:26 Oxygen Delivery Me thod Room Air 11/13/24 10:26 MDM - Abdominal Pain Medical Decision Making Left-sided flank pain radiating to the left side of the abdomen with a mild left CVA percussion tenderness and mild left lower quadrant tenderness. Differential diagnosis includes ureterolithiasis, nephrolithiasis, UTI, and would less likely include vascular etiology after the patient's cardiac ablation. AAA and abdominal aortic dissection seem unlikely. Patient is well-appearing and nontoxic. We discussed options and I looked back at his old CT scan which did contain nephrolithiasis. We are going to do a CBC to check his hemoglobin, BMP to check his kidney function, lipase to rule out pancreatitis, CT scan of the abdomen pelvis to look for any ureterolithiasis or nephrolithiasis to make sure there is nothing else going on in the pelvis. Urine analysis will be performed. Gross examination of his urine reveals no redness or signs of blood. Update 11:12 AM There is left-sided nephrolithiasis. No hydronephrosis. No signs of any obstruction in the ureter or at the opening of the left kidney. There is a mass in the left lower quadrant. This is probably a hematoma. The patient did recently have vascular surgery. It looks like it is slightly heterogenous. I am going to advise that we do a CT angiogram to see if there is any active extravasation. This could be related to left & right femoral vein acces with catheter going up to the heart on 11/08/24. 1152am I have reviewed the CTA abd/pelv images. I do not see any active extrav. No appreciable damage to the imaged femoral/iliac arteries/veins. Hematoma without any contrast within. Plan: Hold eliquis for 48 hours. F/u with Dr Orr's (EP doc) in 48 hours: Decide whether to resume eliquis, repeat vitals, repeat abd exam. Plan for f/u CT in 8-12 weeks since there is a small chance this could be soft tissue mass. D/c to home with specific return precautions. Lab Data 11/13/24 10:26 11/13/24 10:26 Labs/Radiology: Radiology Impressions Abdomen/Pelvis CT 11/13/24 10:28 IMPRESSION: 1. Development of a hyperdense lesion within the left lower pelvis, suspicious for a hematoma of uncertain etiology. Correlate clinically for history of trauma or coagulopathy. A soft tissue mass however is not excluded. Clinical correlation is suggested and follow-up CT of the abdomen and pelvis with contrast could be obtained for further evaluation. 2. Left nephrolithiasis. No ureteral calculus or hydronephrosis. 3. Cholelithiasis 4. No acute pelvic fractures Abdomen/Pelvis CTA 11/13/24 11:15 IMPRESSION: 1. Stable nonenhancing hyperdense lesion within the left lower pelvis, suspicious for a hematoma, given recent history of left femoral vascular access. No areas of contrast extravasation to suggest active hemorrhage. 2. Cholelithiasis 3. Left nephrolithiasis Laboratory Results WBC 7.21 10^3/uL (3.29-11.43) 11/13/24 10: RBC 4.91 10^6/uL (3.85-5.65) 11/13/24 10:26 Hgb 14.80 g/dL (11.27-16.99) 11/13/24 10:26 Hct 43.3 % (37-53) 11/13/24 10:26 MCV 88.2 fl (82-101) 11/13/24 10:26 MCH 30.1 pg (27-33) 11/13/24 10:26 MCHC 34.2 g/dL (30-55) 11/13/24 10:26 RDW 12.7 % (12.1-15.1) 11/13/24 10:26 Plt Count 201 10^3/cmm (157-399) 11/13/24 10:26 MPV 10.0 fL (7.4-10.4) 11/13/24 10: Neut % (Auto) 50.7 % 11/13/24 10:26 Lymph % (Auto) 35.5 % 11/13/24 10:26 [place] % (Auto) 9.3 % 11/13/24 10:26 Eos % (Auto) 3.6 % 11/13/24 10:26 Baso % (Auto) 0.6 % 11/13/24 10:26 Neut # (Auto) 3.66 10^3/uL (1.8-7.7) 11/13/24 10:26 Lymph # (Auto) 2.6 10^3/uL (0.8-4.8) 11/13/24 10: [place] # (Auto) 0.7 10^3/uL (0.2-0.9) 11/13/24 10:26 Eos # (Auto) 0.3 10^3/uL (0.0-0.8) 11/13/24 10: Baso # (Auto) 0.0 10^3/uL (0.0-0.1) 11/13/24 10:26 Nucleated RBC % (auto) 0 % 11/13/24 10: Nucleated RBCs # 0.0 /100WBC 11/13/24 10:26 PT 13.50 SECONDS (12.1-14.9) 11/13/24 10: INR 0.96 (0.8-1.2) 11/13/24 10: APTT 33.2 SECONDS (23.9-36.7) 11/13/24 10:26 Sodium 139 mmol/L (136-145) 11/13/24 10:26 Potassium 4.1 mmol/L (3.5-5.1) 11/13/24 10: Chloride 104 mmol/L (98-107) 11/13/24 10: Carbon Dioxide 25 mmol/L (22-29) 11/13/24 10:26 Anion Gap 14.1 (5-19) 11/13/24 10:26 BUN 16 mg/dL (6-20) 11/13/24 10: Creatinine 0.7 mg/dL (0.7-1.2) 11/13/24 10:26 GFR Calculation 119.9 mL/min (90-130) 11/13/24 10:26 Glucose 86 mg/dL (65-115) 11/13/24 10:26 Calculated Osmolality 288 mOsm/kg (285-295) 11/13/24 10:26 Calcium 8.6 mg/dL (8.5-10.5) 11/13/24 10:26 Lipase 35 U/L (13-60) 11/13/24 10:26 Urine Color Yellow (Yellow) 11/13/24 10:20 Urine Appearance Clear (CLEAR) 11/13/24 10:20 Urine pH 5.5 (5-7) 11/13/24 10:20 Ur Specific [place] 1.007 (1.005-1.030) 11/13/24 10:20 Urine Protein Negative (Negative) 11/13/24 10:20 Urine Glucose (UA) Negative (Normal) 11/13/24 10:20 Urine Ketones Negative (Negative) 11/13/24 10:20 Urine Blood 3+ (Negative) A 11/13/24 10:20 Urine Nitrate Negative (Negative) 11/13/24 10:20 Urine Bilirubin Negative (Negative) 11/13/24 10:20 Urine Urobilinogen 0.2 mg/dL (Negative) 11/13/24 10:20 Ur Leukocyte Esterase Trace (Negative) A 11/13/24 10:20 Urine RBC 0-2 /hpf (0-2) 11/13/24 10:20 Urine WBC 0-5 /hpf (0-5) 11/13/24 10:20 Ur Squamous Epith Cells 0-5 /hpf (0-5) 11/13/24 10:20 Amorphous Sediment Not Reportable 11/13/24 10:20 Urine Bacteria None seen /hpf (NONE) 11/13/24 10:20 Hyaline Casts 0.81 /lpf 11/13/24 10:20 All radiology interpretation(s) finalized by discharge Discharge Plan Discharge Patient Disposition: Home Clinical Impression: Left nephrolithiasis, Intra-abdominal haematoma Condition: Stable Prescriptions: Discontinued ibuprofen 600 mg tablet 600 mg PO Q6H No Action metoprolol tartrate 25 mg tablet 25 mg PO DAILY PRN (Reason: tachycardia) Qty: 30 0RF Rx Instructions: To be taken if heart rate is over 100 for more than 5 minutes methimazole 5 mg tablet 5 mg PO DAILY Qty: 90 1RF Eliquis 5 mg tablet 5 mg PO BID Qty: 60 5RF Discharge Orders: Discharge ED (Routine); Ordered 11/13/24 Ordered By: Reese Durham Referrals: Wellington Orr MD [Referring] - 11/15/24 (Hematoma left pelvis. LLQ and left flank pain. Recent groin access for ablation.) Aleksander Bennett MD [Primary Care Provider] - Patient Instructions: Kidney Stones (ED), Hematoma (ED), Pain Management Activity Restrictions/Additional Instructions: There are 2 possible causes for your left flank and left lower quadrant pain. 1. You have what appears to be a hematoma in the left pelvis. A hematoma is a collection of blood. We did not find any active bleeding into the hematoma nor any damage to the arteries and vessels around it. There is a small chance this could also be a soft tissue mass. Hold your Eliquis for [address] to see [address] Orr on Thursday or Thursday. You will have to call his office for a work in appointment. Often times you may see one of his colleagues. The decision on whether or not to restart Eliquis will have to be made at that time. Take the CD of your CT scan with you. If you feel faint, have increasing pain, passout, feel your heart racing, have low blood pressure, or sweating for no reason, or develop new or worsening symptoms then you must return to the emergency department. 2. You were also found to have a large and a small kidney stone in the left kidney. These can cause a ball valve effect where they transiently block the opening of the ureter. Small kidney stones could also be forming and passing. There is currently no obstruction. This could be a potential source for your pain. Please follow-up with Urologist, call to make an appointment: [facility] - [address], [place] [address] Return to ER if you have severe unrelenting pain, fever, or new symptoms. Read handout for more information. Print Language: French Coding Level of Care Code ED Street Department Dispatcher for Ifeanyi Lima
[2024-11-13 10:34] LABS: Basophils % 0.6 %; Eosinophils # 0.3 10^3/uL (0.0-0.8); Eosinophils % 3.6 %; Hematocrit 43.3 % (37-53); Lymphocytes # 2.6 10^3/uL (0.8-4.8); Lymphocytes % 35.5 %; Mean Corpuscular HGB Conc 34.2 g/dL (30-55); Mean Corpuscular Hemoglobin 30.1 pg (27-33); Mean Corpuscular Volume 88.2 fl (82-101); Monocytes # 0.7 10^3/uL (0.2-0.9); Monocytes % 9.3 %; Neutrophils # 3.66 10^3/uL (1.8-7.7); Neutrophils % 50.7 %; Nucleated Red Blood Cells % 0 %; Platelet Count 201 10^3/cmm (157-399); Red Blood Count 4.91 10^6/uL (3.85-5.65); Red Cell Distribution Width 12.7 % (12.1-15.1); White Blood Count 7.21 10^3/uL (3.29-11.43)
[2024-11-13 10:45] LABS: Bilirubin Urine Negative (Negative); Blood Urine 3+ (Negative); Glucose Urine UA Negative (Normal); Ketones Urine Negative (Negative); Leukocyte Esterase Urine Trace (Negative); Nitrate Urine Negative (Negative); Protein Urine Negative (Negative); Specific Gravity, Urine 1.007 (1.005-1.030); Urine Appearance Clear (CLEAR); Urine Color Yellow (Yellow); Urobilinogen Urine 0.2 mg/dL (Negative); pH Urine 5.5 (5-7)
[2024-11-13 10:51] LABS: Add Urine Microscopic? YES; Bacteria Urine None Seen /hpf; Hyaline Casts Urine 0.81 /lpf; RBC Urine 0-2 /hpf (0-2); Squamous Epithelial Cell Urine 0-5 /hpf (0-5); WBC Urine 0-5 /hpf (0-5)
[2024-11-13 11:01] LABS: Blood Urea Nitrogen 16 mg/dL (6-20); Calcium 8.6 mg/dL (8.5-10.5); Carbon Dioxide 25 mmol/L (22-29); Chloride 104 mmol/L (98-107); Creatinine Clr Calc Pharmacy 136.3433; Glomerular Filtration Rate 119.9 mL/min (90-130); Glucose 86 mg/dL (65-115); Lipase 35 U/L (13-60); Osmolality Calculated 288 mOsm/kg (285-295); Sodium 139 mmol/L (136-145)
[2024-11-13 11:12] LABS: Anion Gap 14.1 (5-19); Potassium 4.1 mmol/L (3.5-5.1)
--- NOTE | 2024-11-13 11:15 | CTR_ITS ---
PROCEDURE INFORMATION: Exam: CTA Chest With Contrast CTA Abdomen and Pelvis With Contrast Exam date and time: 11/13/2024 11:30 AM Age: 49 years old Clinical indication: Other: Hematoma llq abd. Eval for active extravasation. Had left femoral vein access for abalation 11/08. Abdominal pain; Flank; Lower; Additional info: Left femoral vein access for cardiac ablation 11/08--hematoma, hematoma llq abd. Eval for active extravasation. Had left TECHNIQUE: Imaging protocol: Computed tomographic angiography of the chest with contrast. Exam focused on the arteries. Computed tomographic angiography of the abdomen and pelvis with contrast. Exam focused on the arteries. 3D rendering (Not supervised by radiologist): MIP and/or 3D reconstructed images were created by the technologist. Radiation optimization: All CT scans at this facility use at least one of these dose optimization techniques: automated exposure control; mA and/or kV adjustment per patient size (includes targeted exams where dose is matched to clinical indication); or iterative reconstruction. Contrast material: OMNI 350; Contrast volume: 100 ml; Contrast route: INTRAVENOUS (IV); COMPARISON: CT kidney stone [id number] 11/13/2024 10:35 AM RADIATION DOSE METRICS: Total DLP (mGy-cm): 752.98 FINDINGS: VASCULATURE: Pulmonary arteries: Normal. No pulmonary emboli. Aorta: Mild atherosclerotic vascular calcifications of the abdominal aorta. No abdominal aortic aneurysm. Celiac trunk and mesenteric arteries: No occlusion or significant stenosis. Renal arteries: No occlusion or significant stenosis. Right iliac arteries: No occlusion or significant stenosis. Left iliac arteries: No occlusion or significant stenosis. CHEST: Lungs: Unremarkable. No consolidation. No masses. Pleural spaces: Unremarkable. No pneumothorax. No pleural effusion. Heart: Unremarkable. No cardiomegaly. No pericardial effusion. Diaphragm: A small hiatal hernia is noted. ABDOMEN AND PELVIS: Liver: No mass. Gallbladder and biliary ducts: Note is made of cholelithiasis. No gallbladder distension. Pancreas: Unremarkable. No mass. No ductal dilation. Spleen: Unremarkable. No splenomegaly. Adrenal glands: Unremarkable. No mass. Kidneys and ureters: There is unchanged left nephrolithiasis. No ureteral calculus or hydronephrosis. Stomach and bowel: Unremarkable. No obstruction. No mucosal thickening. Appendix: No evidence of appendicitis. Intraperitoneal space: Unremarkable. No free air. No significant fluid collection. Urinary bladder: There is unchanged mass effect and displacement of the urinary bladder. Reproductive: Unremarkable as visualized. Lymph nodes: Unremarkable. No enlarged lymph nodes. Bones/joints: There is a stable hyperdense lesion within the left lower pelvis which measures 6.9 x 4.5 cm and is unchanged when compared with the recent noncontrast study. No abnormal enhancement is noted. No areas of active contrast extravasation are noted within the left lower pelvis or within the lesion. There are stable stranding changes within the pelvis. Soft tissues: A small fat containing umbilical hernia is noted. CT/CT angio abdomen pelvis [id number] IMPRESSION: 1. Stable nonenhancing hyperdense lesion within the left lower pelvis, suspicious for a hematoma, given recent history of left femoral vascular access. No areas of contrast extravasation to suggest active hemorrhage. 2. Cholelithiasis 3. Left nephrolithiasis
[2024-11-13 11:27] LABS: INR 0.96 (0.8-1.2)
[2024-11-13 11:28] LABS: Partial Thromboplastin Time 33.2 SECONDS (23.9-36.7)
[2024-11-13] MEDS: iohexol 350 mg/mL 500 mL Btl (per mL) IV (11:37)
[2024-11-13] MEDS: sodium chloride 0.9% 1,000 ML 999 ML IV (11:54)
[2024-11-13 12:00] VITALS: PULSE 85; O2SAT 98
[2024-11-13 12:41] VITALS: BP 154/75; PULSE 75; O2SAT 100
== END 2024-11-13 12:43 | disposition home or self-care (01) ==
PROVIDERS: Emergency Provider Emergency Medicine; PCP Family Medicine
DX: N20.0 Calculus of kidney (principal); N50.1 Vascular disorders of male genital organs; Z87.891 Personal history of nicotine dependence; I10 Essential (primary) hypertension
CPT/HCPCS: 36415; 74174; 74176; 80048; 81001; 83690; 85025; 85610; 85730; 96360; 99285; J7030

== ENCOUNTER → 2024-11-18 12:42 | Outpatient (BNVA) | payer BC, SELFPAY | PROVIDERS: PCP Family Medicine; Visit Provider Internal Medicine | DX: E04.1 Nontoxic single thyroid nodule (principal); I48.19 Other persistent atrial fibrillation; E05.90 Thyrotoxicosis, unspecified without thyrotoxic crisis or storm | CPT/HCPCS: 36415; 84439; 84443; 84480 ==

== ENCOUNTER 2024-11-19 13:54 | Emergency (ER) | payer BC, SELFPAY ==
--- NOTE | 2024-11-19 14:11 | ECG_ITS ---
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
[2024-11-19 14:12] VITALS: BP 157/92; PULSE 69; RESP 18; TEMP 36.6; O2SAT 96; BMI 29.6
--- NOTE | 2024-11-19 14:32 | ECG_ITS ---
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
--- NOTE | 2024-11-19 15:17 | PC.PHAR ---
pt has new rx for Metoprolol er 25 mg -1/2 tablet bid from 06/16/24 90ds. Pt states he takes the older rx for Metoprolol Tartrate 25mg daily from 02/11/24 90ds.
[2024-11-19 15:37] LABS: Basophils # 0.1 10^3/uL (0.0-0.1); Basophils % 0.6 %; Eosinophils # 0.3 10^3/uL (0.0-0.8); Eosinophils % 3.2 %; Hematocrit 41.3 % (37-53); Lymphocytes # 2.5 10^3/uL (0.8-4.8); Lymphocytes % 31.8 %; Mean Corpuscular HGB Conc 33.9 g/dL (30-55); Mean Corpuscular Hemoglobin 30.5 pg (27-33); Mean Platelet Volume 10.1 fL (7.4-10.4); Monocytes # 0.8 10^3/uL (0.2-0.9); Monocytes % 9.7 %; Neutrophils % 54.4 %; Nucleated Red Blood Cells % 0 %; Platelet Count 250 10^3/cmm (157-399); Red Blood Count 4.59 10^6/uL (3.85-5.65); White Blood Count 7.73 10^3/uL (3.29-11.43)
[2024-11-19 15:55] LABS: Anion Gap 12.7 (5-19); Blood Urea Nitrogen 13 mg/dL (6-20); Calcium 8.7 mg/dL (8.5-10.5); Carbon Dioxide 26 mmol/L (22-29); Chloride 103 mmol/L (98-107); Glomerular Filtration Rate 89.7 mL/min (90-130); Glucose 100 mg/dL (65-115); Osmolality Calculated 286 mOsm/kg (285-295); Potassium 3.7 mmol/L (3.5-5.1); Sodium 138 mmol/L (136-145)
--- NOTE | 2024-11-19 16:17 | W.ED.ARRPALP ---
HPI - Arrhythmia/Palpitations General: Chief Complaint: Arrhythmia/Palpitations Stated Complaint: heart beating hard Time Seen by Provider: 11/19/24 14:19 History of Present Illness: This patient is a 49-year-old male who presents to the emergency department with palpitations. He states he has a pounding sensation in the chest which started today. He states it is not a fast or slow heart rate it is just a pounding sensation. Patient states he has a history of atrial fibrillation and just had an ablation on November 08 at [facility]. He is not having any chest pain or shortness of breath. Related Data Previous Rx's ?Medication ?Instructions ?Recorded apixaban 5 mg tablet (Eliquis) 5 mg PO BID #60 tabs 08/16/24 metoprolol tartrate 25 mg tablet 25 mg PO DAILY PRN tachycardia #30 08/16/24 tabs Allergies Allergy/AdvReac Type Severity Reaction Status Date / Time No Known Allergies Allergy Verified 11/18/24 07:49 Review of Systems General: Reports: 10 or more systems reviewed and unremarkable except in HPI and below Card: Reports: palpitations PFSH ED PFSH: Medical History Idiopathic urticaria Atrial fibrillation with RVR Benign essential HTN Shoulder pain, right Surgical History No pertinent past surgical history Family History Other Diabetes Hypertension Social History Smoking and tobacco/nicotine status: former use of tobacco/nicotine Alcohol intake: current Alcohol intake frequency: holidays/special occasions only Substance/Drug Use: never Lives independently: Yes Household members: spouse and children Physical Exam Const: COMMON NORMALS: no acute distress, patient oriented x3 and no limitations GENERAL APPEARANCE: cooperative and comfortable HENMT: COMMON NORMALS: normocephalic, atraumatic, Normal nasal mucous membranes and turbinates present, moist oral mucous membranes and oropharynx normal HEAD & SCALP: normal to inspection, normocephalic and atraumatic FACE & SINUS: normal facial exam NOSE: Normal nasal mucous membranes and turbinates present Eye: COMMON NORMALS: Equal, round and reactive pupils present, EOMs intact bilaterally and conjunctivae normal GENERAL EYE: appearance normal, both eyes and all related structures CONJUNCTIVA: Yes conjunctivae normal PUPIL: Yes Equal, round and reactive pupils present Neck/C-Spine: COMMON NORMALS: supple and no JVD Chest: COMMONS NORMALS: normal inspection of the chest Resp: COMMON NORMALS: normal respiratory effort and clear to auscultation bilaterally AUSCULTATION: clear to auscultation bilaterally Cardio: COMMON NORMALS: no JVD, regular rate, regular rhythm, No gallops present (Cardio), No murmurs present (Cardio) and No rub (Cardio) RATE: regular rate RHYTHM: regular rhythm OTHER: Premature beats GI: COMMON NORMALS: Normal to inspection, nondistended, normoactive bowel sounds present, Soft to palpation and non-tender AUSCULTATION: Yes normoactive bowel sounds PALPATION: Yes Soft to palpation : COMMON NORMALS: Yes no CVA tenderness BLADDER/KIDNEY EXAM: Yes no CVA tenderness Back/Pelvis: COMMON NORMALS: no CVA tenderness and thoracic and lumbar spine normal to inspection Extremity: COMMON NORMALS: normal to inspection Neuro: COMMON NORMALS: patient oriented x3 and CN's II-XII intact bilaterally Psych: COMMON NORMALS: mental status grossly normal, Normal thought process present and cooperative THOUGHT PROCESS: Normal thought process present Skin: COMMON NORMALS: no rashes or lesions noted, turgor normal and no jaundice GENERAL SKIN EXAM: no rashes or lesions noted and turgor normal Course Vital Signs: Vital signs: Vital Signs Temperature 97.9 F 11/19/24 14:12 Pulse Rate 69 11/19/24 14:12 Respiratory Rate 18 11/19/24 14:12 Blood Pressure 157/92 11/19/24 14:12 Pulse Oximetry 96 11/19/24 14:12 Oxygen Delivery Me thod Room Air 11/19/24 14:12 MDM - Arrhythmia/Palpitations Medical Decision Making The initial EKG revealed normal sinus rhythm with no ST segment abnormalities. Some premature beats were showing up on the residential monitor. Nurse obtain another EKG which reveals premature beats. They appear to be most consistent with premature junctional contractions or contractions with intraventricular conduction delay. I did check a CBC and BMP and those are normal. Patient was reassured that these are nothing to worry about they are just more annoying. I recommended him contacting his insulation applicator on Thursday letting them know that he is having these premature beats and get their recommendations. He was discharged in stable condition. Lab Data 11/19/24 15:30 11/19/24 15:30 Laboratory Results WBC 7.73 10^3/uL (3.29-11.43) 11/19/24 15:30 RBC 4.59 10^6/uL (3.85-5.65) 11/19/24 15:30 Hgb 14.00 g/dL (11.27-16.99) 11/19/24 15:30 Hct 41.3 % (37-53) 11/19/24 15:30 MCV 90.0 fl (82-101) 11/19/24 15: MCH 30.5 pg (27-33) 11/19/24 15: MCHC 33.9 g/dL (30-55) 11/19/24 15:30 RDW 13.0 % (12.1-15.1) 11/19/24 15:30 Plt Count 250 10^3/cmm (157-399) 11/19/24 15: MPV 10.1 fL (7.4-10.4) 11/19/24 15:30 Neut % (Auto) 54.4 % 11/19/24 15:30 Lymph % (Auto) 31.8 % 11/19/24 15:30 [place] % (Auto) 9.7 % 11/19/24 15:30 Eos % (Auto) 3.2 % 11/19/24 15:30 Baso % (Auto) 0.6 % 11/19/24 15:30 Neut # (Auto) 4.20 10^3/uL (1.8-7.7) 11/19/24 15:30 Lymph # (Auto) 2.5 10^3/uL (0.8-4.8) 11/19/24 15:30 [place] # (Auto) 0.8 10^3/uL (0.2-0.9) 11/19/24 15:30 Eos # (Auto) 0.3 10^3/uL (0.0-0.8) 11/19/24 15:30 Baso # (Auto) 0.1 10^3/uL (0.0-0.1) 11/19/24 15:30 Nucleated RBC % (auto) 0 % 11/19/24 15:30 Nucleated RBCs # 0.0 /100WBC 11/19/24 15:30 Sodium 138 mmol/L (136-145) 11/19/24 15:30 Potassium 3.7 mmol/L (3.5-5.1) 11/19/24 15:30 Chloride 103 mmol/L (98-107) 11/19/24 15:30 Carbon Dioxide 26 mmol/L (22-29) 11/19/24 15:30 Anion Gap 12.7 (5-19) 11/19/24 15:30 BUN 13 mg/dL (6-20) 11/19/24 15:30 Creatinine 0.9 mg/dL (0.7-1.2) 11/19/24 15:30 GFR Calculation 89.7 mL/min (90-130) L 11/19/24 15:30 Glucose 100 mg/dL (65-115) 11/19/24 15:30 Calculated Osmolality 286 mOsm/kg (285-295) 11/19/24 15:30 Calcium 8.7 mg/dL (8.5-10.5) 11/19/24 15:30 No radiology studies performed this visit Discharge Plan Discharge Patient Disposition: Home Clinical Impression: Premature junctional contractions Condition: Stable Prescriptions: No Action metoprolol tartrate 25 mg tablet 25 mg PO DAILY PRN (Reason: tachycardia) Qty: 30 0RF Rx Instructions: To be taken if heart rate is over 100 for more than 5 minutes Eliquis 5 mg tablet 5 mg PO BID Qty: 60 5RF Discharge Orders: Discharge ED (Routine); Ordered 11/19/24 Ordered By: mUer Hutchison Referrals: Aleksander Bennett MD [Primary Care Provider] - Activity Restrictions/Additional Instructions: Contact your insulation applicator earlier this week for their recommendations. 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
[2024-11-19 16:39] VITALS: BP 161/74; PULSE 86; O2SAT 98
== END 2024-11-19 16:40 | disposition home or self-care (01) ==
PROVIDERS: Emergency Provider Emergency Medicine; PCP Family Medicine
DX: I49.2 Junctional premature depolarization (principal); Z79.01 Long term (current) use of anticoagulants; Z87.891 Personal history of nicotine dependence; I10 Essential (primary) hypertension
CPT/HCPCS: 36415; 80048; 85025; 93005; 99284

== ENCOUNTER → 2025-05-23 08:52 | Outpatient (BNVA) | payer OTHER, SELFPAY | PROVIDERS: PCP Family Medicine Geriatric Medicine; Visit Provider Surgery | DX: Z12.11 Encounter for screening for malignant neoplasm of colon (principal) | CPT/HCPCS: 99203 ==

== ENCOUNTER 2025-06-22 06:19 | Day surgery (SDC) | payer OTHER, SELFPAY ==
[2025-06-22 06:31] VITALS: BP 139/115; PULSE 73; RESP 16; TEMP 36.2; O2SAT 96; BMI 28.8
--- NOTE | 2025-06-22 06:55 | W.PM.OPSFHP ---
Same Day Surgery H&P Indication for Procedure/HPI DATE OF PROCEDURE: June 22, 2025 CHIEF COMPLAINT/INDICATIONFOR SURGICAL PROCEDURE: need for screening colonoscopy PREOP DIAGNOSIS: need for screening colonoscopy PLANNED PROCEDURE: Operation Date: 06/22/25 07:40 Proposed Procedures p Colonoscopy [id number] G0121 Z12.11(Not Applicable) - Tee Mosley MD Medications/Allergies* Home Medications ?Medication ?Instructions ?Recorded ?Confirmed ?Type fluticasone propionate 50 2 spray intranasal DAILY PRN 06/19/25 06/22/25 History mcg/actuation nasal Allergy Symptoms spray,suspension (Flonase Allergy Relief) Allergies/Adverse Reactions Allergy/AdvReac Type Severity Reaction Status Date / Time No Known Allergies Allergy Verified 05/23/25 08:55 Pertinent History/Comorbid Conditions* Medical History (Updated 12/06/24 @ 11:03 by Aleksander Bennett MD) Idiopathic urticaria Atrial fibrillation with RVR Benign essential HTN Shoulder pain, right Surgical History (Updated 04/07/22 @ 10:52 by Vale López DO) No pertinent past surgical history Family History (Updated 11/25/22 @ 11:00 by Jake Cornell MD) Diabetes Hypertension Social History Smoking and tobacco/nicotine status: former use of tobacco/nicotine Alcohol intake: current Alcohol intake frequency: holidays/special occasions only Substance/Drug Use: never Lives independently: Yes Household members: spouse and children Pertinent Exam Findings alert, oriented x 3, clear to auscultation bilaterally and regular rate & rhythm Recommendations Surgery/Procedure today Coding Level of Care Code Acute Code for Chg Clarence
--- NOTE | 2025-06-22 07:29 | ANES.PREANE2 ---
Pre-Anesthetic Assessment Height/Weight: Height 1.73 m Weight 86.183 kg Temp Pulse Resp BP Pulse Ox O2 Del Method 97.1 F L 73 16 139/115 96 Room Air 06/22/25 06:31 06/22/25 06:31 06/22/25 06:31 06/22/25 06:31 06/22/25 06:31 06/22/25 06:31 Preop Diagnosis: need for screening colonoscopy Operation Date: 06/22/25 07:40 Proposed Procedures p Colonoscopy [id number] Z12.11(Not Applicable) - Tee Mosley MD Familial anesthetic complications: No known anesthesia problems. Was Beta Hamzah taken within 24 hours: N/A (hasn't taken beta hamzah in one week) Last intake: Intake Last Liquid Date 06/21/25 Last Liquid Time 22:00 Last Solid Date 06/20/25 Last Solid Time 19:00 Exam CHAZ with cpap but doesnt use the cpap Airway Submandibular: within normal limits Cervical ROM: within normal limits Mallampati: Class I Dentition: full Pulmonary Sleep Apnea CV/HEM Atrial Fibrillation cardiac ablation None reported Hepatic None reported GI Gastroesophageal Reflux Disease Neuropsych None reported Anesthetic Plan ASA status: 3 Anesthesia: MAC Risk of > 500 ml blood loss (7ml/kg in children): No Medications/Allergies Home Medications ?Medication ?Instructions ?Recorded ?Confirmed ?Last Taken ?Type cetirizine 10 mg tablet (Zyrtec) 10 mg PO DAILY PRN allergy 12/06/24 06/22/25 Unknown Rx symptoms #30 tabs metoprolol tartrate 25 mg tablet 25 mg PO DAILY tachycardia #90 tabs 12/20/24 06/22/25 06/19/25 Rx ondansetron 8 mg disintegrating 8 mg PO Q8H PRN nausea and 05/23/25 06/22/25 Unknown Rx tablet vomiting #3 tabs fluticasone propionate 50 2 spray intranasal DAILY PRN 06/19/25 06/22/25 Unknown History mcg/actuation nasal Allergy Symptoms spray,suspension (Flonase Allergy Relief) Allergies Allergy/AdvReac Type Severity Reaction Status Date / Time No Known Allergies Allergy Verified 05/23/25 08:55 hasn;t taken his beta hamzah in about a week for atrial fib PFSH Anesthesia Medical History Idiopathic urticaria Atrial fibrillation with RVR Benign essential HTN Shoulder pain, right Surgical History No pertinent past surgical history Family History Other Diabetes Hypertension Social History Smoking and tobacco/nicotine status: former use of tobacco/nicotine Alcohol intake: current Alcohol intake frequency: holidays/special occasions only Substance/Drug Use: never Lives independently: Yes Household members: spouse and children Data Anesthesia Cardiac Studies: Echocardiogram 11/25/22 Transesophageal Echocardiogram 11/27/22 Sestamibi Stress Test (Cardiology) 12/19/22 Cardiac Event Monitor 12/08/22
[2025-06-22 08:16] VITALS: BP 127/90; PULSE 74; RESP 18; TEMP 36.1; O2SAT 100
[2025-06-22 08:26] VITALS: BP 150/95; PULSE 68; RESP 17; O2SAT 100
[2025-06-22 08:34] VITALS: BP 145/106; PULSE 70; RESP 17; O2SAT 100
--- NOTE | 2025-06-22 08:40 | ANE.PACU2 ---
Inpatient post-anesthesia follow up: Airway intact: Yes Vital signs: Temperature 97.0 F Pulse Rate 70 Respiratory Rate 17 Blood Pressure 145/106 Pulse Oximetry 100 Oxygen Delivery Me thod Room Air Oxygen Flow Rate Fraction of Inspir ed Oxygen Hydration adequate: Yes Nausea and vomiting: No Pain level: 1 Mental status: Baseline
== END 2025-06-22 08:43 | disposition home or self-care (01) ==
PROVIDERS: PCP Family Medicine Geriatric Medicine; Visit Provider Surgery
PROC: 0DJD8ZZ Inspection of Lower Intestinal Tract, Via Natural or Artificial Opening Endoscopic (ICD-10-PCS; CPT 45378; principal; 2025-06-22 07:40)
DX: Z12.11 Encounter for screening for malignant neoplasm of colon (principal); Z87.891 Personal history of nicotine dependence; G47.30 Sleep apnea, unspecified; I48.91 Unspecified atrial fibrillation; K21.9 Gastro-esophageal reflux disease without esophagitis
CPT/HCPCS: 45378; J2704; J7030; J9999

== ENCOUNTER → 2025-07-10 09:38 | Outpatient (BNVA) | payer OTHER, SELFPAY | PROVIDERS: PCP Family Medicine Geriatric Medicine; Visit Provider Nurse Practitioner Family | DX: I48.91 Unspecified atrial fibrillation (principal); I10 Essential (primary) hypertension; I49.9 Cardiac arrhythmia, unspecified; Z87.891 Personal history of nicotine dependence | CPT/HCPCS: 99213 ==